=== PATIENT | female | born 1940 | race Caucasian/White ===

== ENCOUNTER → 2016-10-03 | Outpatient (CLI) | payer OTHER ==
[~2016-10-03] VITALS: Ht 162.6 cm; Wt 70.8 kg
[~2016-10-03] MED LIST: ASPI1TAB PO; CALC600T57 PO; LIDOCAINE 2% INJ 100 MG/5 ML SDV (FOR ANES.) As Ordered ONE; MULT1TAB10 PO; NS 1,000 ML IV ONE; PROPOFOL 200 MG/20 ML VIAL As Ordered ONE; SIMV40TA2 PO; VITA500T PO
--- NOTE | 2016-10-03 09:08 | ROOR ---
Patient Name: Janet Fam Procedure Date: 10/03/2016 8:41 AM Date of : 1940 Age: 75 Room: [facility] Gender: Female Note Status: Finalized Procedure: Colonoscopy Indications: High risk colon cancer surveillance: Personal history of colonic polyps, Last colonoscopy: May 2013 Providers: Delon MOREL MD Referring MD: Gavin Whitlock MD Requesting Provider: Medicines: Monitored Anesthesia Care Complications: No immediate complications. Procedure: Pre-Anesthesia Assessment: - The heart rate, respiratory rate, oxygen saturations, blood pressure, adequacy of pulmonary ventilation, and response to care were monitored throughout the procedure. The Colonoscope was introduced through the anus and advanced to the terminal ileum, with identification of the appendiceal orifice and IC valve. The colonoscopy was performed without difficulty. The patient tolerated the procedure well. The quality of the bowel preparation was good. Findings: The perianal and digital rectal examinations were normal. Multiple medium-mouthed diverticula were found in the sigmoid colon. There was evidence of diverticular spasm. Internal hemorrhoids were found during retroflexion. The hemorrhoids were medium-sized. The exam was otherwise without abnormality. Impression: - Moderate/severe diverticulosis in the sigmoid colon. There was evidence of diverticular spasm. - Internal hemorrhoids. - The examination was otherwise normal. - No specimens collected. Recommendation: - Repeat colonoscopy in 5 years for adenoma surveillance. Delon Morel MD Delon MOREL MD 10/03/2016 9:07:46 AM This report has been signed electronically. Number of Addenda: 0 Note Initiated On: 10/03/2016 8:41 AM Estimated Blood Loss: Estimated blood loss: none.
[2016-10-03 09:30] VITALS: BP 142/74
== END | disposition home or self-care (01) ==
LOC: M OPP 07:41
PROVIDERS: ATTEND Internal Medicine Gastroenterology
DX: Z12.11 Encounter for screening for malignant neoplasm of colon (principal); Z86.010 Personal history of colon polyps; K57.30 Diverticulosis of large intestine without perforation or abscess without bleeding; K64.8 Other hemorrhoids; E78.00 Pure hypercholesterolemia, unspecified; R06.83 Snoring; Z79.899 Other long term (current) drug therapy; Z79.82 Long term (current) use of aspirin

== ENCOUNTER → 2016-11-28 | Outpatient (REF) | payer OTHER ==
[~2016-11-28] MED LIST changes: -LIDOCAINE 2% INJ 100 MG/5 ML SDV (FOR ANES.) As Ordered ONE; -NS 1,000 ML IV ONE; -PROPOFOL 200 MG/20 ML VIAL As Ordered ONE
[2016-11-28 13:11] LABS: ALBUMIN 3.7 GM/DL (3.2-5.2); ALBUMIN/GLOBULIN RATIO 1.06 (1.00-1.93); ALKALINE PHOSPHATASE 69 U/L (45-117); ALT/SGPT 24 U/L (12-78); ANION GAP 7 MEQ/L (8-16); AST/SGOT 6 U/L (15-37); BILIRUBIN,TOTAL 0.4 MG/DL (0.2-1.0); BLOOD UREA NITROGEN 16 MG/DL (7-18); CALCIUM LEVEL 8.8 MG/DL (8.8-10.2); CARBON DIOXIDE LEVEL 29 MEQ/L (21-32); CHLORIDE LEVEL 107 MEQ/L (98-107); CHOLESTEROL LEVEL 198 MG/DL (<200); CREATININE FOR GFR 0.79 MG/DL (0.55-1.02); GLOMERULAR FILTRATION RATE > 60.0 (>39); GLUCOSE, FASTING 80 MG/DL (83-110); POTASSIUM SERUM 4.6 MEQ/L (3.5-5.1); SODIUM LEVEL 143 MEQ/L (136-145); TOTAL PROTEIN 7.2 GM/DL (6.4-8.2); TRIGLYCERIDES LEVEL 237 MG/DL (<150)
== END ==
LOC: M SFHCADAM 08:37
PROVIDERS: ATTEND Family Medicine
DX: R03.0 Elevated blood-pressure reading, without diagnosis of hypertension (principal); E78.2 Mixed hyperlipidemia

== ENCOUNTER → 2017-03-06 | Outpatient (CLI) | payer OTHER ==
--- NOTE | 2017-03-06 15:45 | REPMRS ---
Patient History The patient states she had a clinical breast exam in 02/2017.Patient is postmenopausal and has history of other cancer at age 69. Family history of breast cancer in paternal aunt under age 50 and breast cancer in maternal cousin. Benign excisional biopsy of the left breast, 1998. Benign excisional biopsy of the right breast, 1984. Digital Woman Screen Mammo: March 06, 2017 - Exam #: [id number] Bilateral CC and MLO view(s) were taken. Technologist: Domitila Armstrong Technologist Prior study comparison: February 07, 2016, digital woman screen mammo performed at [facility]. February 04, 2015, digital woman screen mammo performed at [facility]. FINDINGS: There are scattered fibroglandular densities. There is a fairly symmetric fibroglandular pattern in both breasts. There has been no interval development of masses, areas of architectural distortion or clusters of microcalcifications typical of malignancy. ASSESSMENT: BI-RADS/ACR category 2 mammogram. Benign finding(s). Recommendation Routine screening mammogram of both breasts in 1 year (for women over age 40). This mammogram was interpreted with the aid of an FDA-approved computer-aided dectection system. Electronically Signed By: Magan Salguero MD 03/06/17 [id number]
== END ==
LOC: M WHC 14:22
PROVIDERS: ATTEND Nurse Practitioner Family
DX: Z12.31 Encounter for screening mammogram for malignant neoplasm of breast (principal); Z78.0 Asymptomatic menopausal state; Z92.89 Personal history of other medical treatment

== ENCOUNTER → 2017-10-30 | Outpatient (REF) | payer OTHER ==
[2017-10-30 12:52] LABS: HEMATOCRIT 38.7 % (36.0-47.0); HEMOGLOBIN 12.7 g/dl (12.0-15.5); MEAN CORPUSCULAR HEMOGLOBIN 30.8 pg (27.0-33.0); MEAN CORPUSCULAR HGB CONC 32.8 g/dl (32.0-36.5); MEAN CORPUSCULAR VOLUME 93.7 fl (80.0-96.0); PLATELET COUNT, AUTOMATED 251 10^3/uL (150-450); RED BLOOD COUNT 4.13 10^6/uL (4.00-5.40); RED CELL DISTRIBUTION WIDTH 12.4 % (11.5-14.5); WHITE BLOOD COUNT 7.3 10^3/uL (4.0-10.0)
[2017-10-30 13:26] LABS: ALBUMIN 3.6 GM/DL (3.2-5.2); ALKALINE PHOSPHATASE 82 U/L (45-117); ALT/SGPT 24 U/L (12-78); ANION GAP 7 MEQ/L (8-16); AST/SGOT 11 U/L (7-37); BILIRUBIN,TOTAL 0.4 MG/DL (0.2-1.0); BLOOD UREA NITROGEN 13 MG/DL (7-18); CARBON DIOXIDE LEVEL 29 MEQ/L (21-32); CHLORIDE LEVEL 109 MEQ/L (98-107); CHOLESTEROL LEVEL 192 MG/DL (<200); CHOLESTEROL RISK RATIO 3.918 (<5); CREATININE FOR GFR 0.81 MG/DL (0.55-1.30); FREE T4 0.86 NG/DL (0.76-1.46); GLOMERULAR FILTRATION RATE > 60.0 (>39); GLUCOSE, FASTING 86 MG/DL (70-100); HDL CHOLESTEROL 49 MG/DL (>40); LDL CHOLESTEROL 84.2 MG/DL (<100); NON-HDL-C 143 MG/DL; POTASSIUM SERUM 4.4 MEQ/L (3.5-5.1); SODIUM LEVEL 145 MEQ/L (136-145); TOTAL PROTEIN 7.2 GM/DL (6.4-8.2); TRIGLYCERIDES LEVEL 294 MG/DL (<150)
== END ==
LOC: M SFHCADAM 08:15
DX: K21.9 Gastro-esophageal reflux disease without esophagitis (principal); E78.2 Mixed hyperlipidemia
CPT/HCPCS: 84443

== ENCOUNTER → 2018-03-12 | Outpatient (REF) | payer OTHER ==
--- NOTE | 2018-03-13 05:50 | REP ---
Clinical: Chronic cough. Technique: PA and lateral. Comparison: 08/24/2005. Findings: Mediastinum and cardiac silhouette are within normal limits. Bilateral hilar prominence likely related to underlying pulmonary vasculature and less likely adenopathy. Chronic interstitial changes noted. No focal consolidation / opacity, effusion, or pneumothorax. Skeletal structures intact. Impression: Presumed chronic changes as noted above. If the patient remains symptomatic consider chest CT for further investigation. Electronically Signed by Chema Leung MD 03/13/2018 05:41 A
== END ==
LOC: M ADAMS 09:31
PROVIDERS: ATTEND Family Medicine
DX: R05 Cough (principal)
CPT/HCPCS: 71046; G0463

== ENCOUNTER → 2018-03-15 | Outpatient (CLI) | payer OTHER | LOC: M WHC 15:07 | DX: Z12.31 Encounter for screening mammogram for malignant neoplasm of breast (principal); R92.1 Mammographic calcification found on diagnostic imaging of breast; Z78.0 Asymptomatic menopausal state; Z86.018 Personal history of other benign neoplasm | CPT/HCPCS: 77067 ==

== ENCOUNTER → 2018-10-14 | Outpatient (REF) | payer MEDICARE ==
[~2018-10-14] MED LIST changes: -ASPI1TAB PO; +ASPI81TA26 PO
== END ==
LOC: M LAB REF 15:48
PROVIDERS: ATTEND Nurse Practitioner Family
DX: L60.3 Nail dystrophy (principal)

== ENCOUNTER → 2018-11-12 | Outpatient (REF) | payer MEDICARE ==
[2018-11-12 12:49] LABS: ALBUMIN 3.5 GM/DL (3.2-5.2); ALT/SGPT 23 U/L (12-78); BILIRUBIN,TOTAL 0.3 MG/DL (0.2-1.0); BLOOD UREA NITROGEN 15 MG/DL (7-18); CALCIUM LEVEL 9.2 MG/DL (8.8-10.2); CARBON DIOXIDE LEVEL 30 MEQ/L (21-32); CHLORIDE LEVEL 107 MEQ/L (98-107); CHOLESTEROL LEVEL 198 MG/DL (<200); CREATININE FOR GFR 0.77 MG/DL (0.55-1.30); GLOMERULAR FILTRATION RATE > 60.0 (>39); GLUCOSE, FASTING 87 MG/DL (70-100); HDL CHOLESTEROL 45 MG/DL (>40); LDL CHOLESTEROL 92 MG/DL (<100); NON-HDL-C 153 MG/DL; POTASSIUM SERUM 4.3 MEQ/L (3.5-5.1); SODIUM LEVEL 143 MEQ/L (136-145); TOTAL PROTEIN 7.3 GM/DL (6.4-8.2); TRIGLYCERIDES LEVEL 307 MG/DL (<150)
== END ==
LOC: M SFHCADAM 08:24
PROVIDERS: ATTEND Family Medicine
DX: E78.2 Mixed hyperlipidemia (principal)

== ENCOUNTER → 2018-11-26 | Outpatient (REF) | payer MEDICARE ==
[2018-11-26 14:12] LABS: HEMATOCRIT 39.8 % (36.0-47.0); HEMOGLOBIN 13.2 g/dl (12.0-15.5); MEAN CORPUSCULAR HEMOGLOBIN 31.2 pg (27.0-33.0); MEAN CORPUSCULAR HGB CONC 33.2 g/dl (32.0-36.5); MEAN CORPUSCULAR VOLUME 94.1 fl (80.0-96.0); PLATELET COUNT, AUTOMATED 270 10^3/uL (150-450); RED BLOOD COUNT 4.23 10^6/uL (4.00-5.40); WHITE BLOOD COUNT 7.9 10^3/uL (4.0-10.0)
[2018-11-26 14:24] LABS: FREE T4 0.86 NG/DL (0.76-1.46); THYROID STIMULATING HORMONE 2.53 uIU/ML (0.358-3.740)
== END ==
LOC: M SFHCADAM 10:56
PROVIDERS: ATTEND Family Medicine
DX: R53.83 Other fatigue (principal)

== ENCOUNTER → 2019-03-04 | Outpatient (CLI) | payer MEDICARE, OTHER ==
[~2019-03-04] MED LIST changes: -SIMV40TA2 PO; +SIMV40TA20 PO
--- NOTE | 2019-03-04 12:44 | REPMRS ---
Patient History The patient states she had a clinical breast exam in February 2019.Family history of breast cancer under age 50 in paternal aunt, breast cancer in maternal cousin. Benign excisional biopsy of the left breast, 1998. Benign excisional biopsy of the right breast, 1984. No Hormone Replacement Therapy 3D TOMOSYNTHESIS WAS PERFORMED. The [facility] lifetime risk for breast cancer is4.4 %. Digital Woman Screen Mammo: March 04, 2019 - Exam #: [id number] Bilateral CC and MLO view(s) were taken. Technologist: My Valdez, Technologist Prior study comparison: March 15, 2018, bilateral digital woman screen mammo performed at [facility]. March 06, 2017, digital woman screen mammo performed at [facility]. FINDINGS: The breast tissue is heterogeneously dense. This may lower the sensitivity of mammography. There has been no change in the appearance of the mammogram from the prior studies. There is a moderate amount of residual fibroglandular tissue which is fairly symmetric. There is no interval development of dominant mass, areas of architectural distortion, or clustered microcalcification typical of malignancy. Assessment: BI-RADS/ACR category 1 mammogram. Negative Mammogram. Recommendation Routine screening mammogram in 1 year (for women over age 40). This mammogram was interpreted with the aid of an FDA-approved computer-aided dectection system. Electronically Signed By: Magan Salguero MD 03/04/19 [id number]
== END ==
LOC: M WHC 10:30
PROVIDERS: ATTEND Nurse Practitioner Family
DX: Z01.419 Encounter for gynecological examination (general) (routine) without abnormal findings (principal); Z12.31 Encounter for screening mammogram for malignant neoplasm of breast; Z86.018 Personal history of other benign neoplasm
CPT/HCPCS: 77063; 77067; G0101

== ENCOUNTER → 2019-11-19 | Outpatient (REF) | payer MEDICARE ==
[~2019-11-19] MED LIST changes: +VITA-243 PO; -VITA500T PO
[2019-11-19 14:42] LABS: HEMATOCRIT 40.1 % (36.0-47.0); HEMOGLOBIN 12.8 g/dl (12.0-15.5); MEAN CORPUSCULAR HEMOGLOBIN 29.9 pg (27.0-33.0); MEAN CORPUSCULAR HGB CONC 31.9 g/dl (32.0-36.5); MEAN CORPUSCULAR VOLUME 93.7 fl (80.0-96.0); PLATELET COUNT, AUTOMATED 242 10^3/uL (150-450); RED BLOOD COUNT 4.28 10^6/uL (4.00-5.40); WHITE BLOOD COUNT 7.3 10^3/uL (4.0-10.0)
[2019-11-19 14:43] LABS: ALBUMIN 3.8 GM/DL (3.2-5.2); ALT/SGPT 21 U/L (12-78); BILIRUBIN,TOTAL 0.4 MG/DL (0.2-1.0); BLOOD UREA NITROGEN 15 MG/DL (7-18); CARBON DIOXIDE LEVEL 31 MEQ/L (21-32); CHLORIDE LEVEL 108 MEQ/L (98-107); CHOLESTEROL LEVEL 186 MG/DL (<200); CHOLESTEROL RISK RATIO 3.576 (<5); CREATININE FOR GFR 0.79 MG/DL (0.55-1.30); GLOMERULAR FILTRATION RATE > 60.0 (>39); GLUCOSE, FASTING 82 MG/DL (70-100); HDL CHOLESTEROL 52 MG/DL (>40); LDL CHOLESTEROL 87 MG/DL (<100); NON-HDL-C 134 MG/DL; POTASSIUM SERUM 4.6 MEQ/L (3.5-5.1); SODIUM LEVEL 142 MEQ/L (136-145); TOTAL PROTEIN 7.1 GM/DL (6.4-8.2); TRIGLYCERIDES LEVEL 233 MG/DL (<150)
== END ==
LOC: M LABDRWAD 13:38
PROVIDERS: ATTEND Family Medicine
DX: E78.5 Hyperlipidemia, unspecified (principal); K21.9 Gastro-esophageal reflux disease without esophagitis
CPT/HCPCS: 36415; 80053; 80061; 85027; G0463

== ENCOUNTER → 2020-03-03 | Outpatient (CLI) | payer MEDICARE ==
--- NOTE | 2020-03-03 11:36 | REPMRS ---
Patient History The patient states she had a clinical breast exam in February 2020.Family history of breast cancer under age 50 in paternal aunt, breast cancer in maternal cousin. Benign excisional biopsy of the left breast, 1998. Benign excisional biopsy of the right breast, 1984. No Hormone Replacement Therapy Digital Woman Screen Mammo: March 03, 2020 - Exam #: [id number] Bilateral CC and MLO view(s) were taken. Technologist: My Valdez, Technologist Prior study comparison: March 04, 2019, bilateral digital woman screen mammo performed at [facility]. March 15, 2018, bilateral digital woman screen mammo performed at [facility]. March 06, 2017, digital woman screen mammo performed at [facility]. FINDINGS: There are scattered fibroglandular densities. The [facility] volumetric breast density category is:B. There has been no change in the appearance of the mammogram from the prior studies. There is a mild amount of scattered fibroglandular density which is fairly symmetric. There is no interval development of dominant mass, architectural distortion, or grouped microcalcification suggestive of malignancy. 3-D tomosynthesis shows no additional findings. Assessment: BI-RADS/ACR category 1 mammogram. Negative Mammogram. Recommendation Routine screening mammogram of both breasts in 1 year (for women over age 40). This patient's [facility] Lifetime Breast Cancer Risk is estimated at 3.9 %. This mammogram was interpreted with the aid of an FDA-approved computer-aided dectection system. Electronically Signed By: Kyaw Torrez MD 03/03/20 [id number]
== END ==
LOC: M WHC 10:28
PROVIDERS: ATTEND Nurse Practitioner Family
DX: Z12.31 Encounter for screening mammogram for malignant neoplasm of breast (principal); Z86.018 Personal history of other benign neoplasm

== ENCOUNTER → 2020-04-28 | Outpatient (CLI) | payer MEDICARE | LOC: M LABSMTC 12:15 | PROVIDERS: ATTEND Anesthesiology | DX: Z01.812 Encounter for preprocedural laboratory examination (principal); Z20.822 Contact with and (suspected) exposure to COVID-19 ==

== ENCOUNTER 2020-05-03 08:16 | Day surgery (SDC) | payer MEDICARE ==
[~2020-05-03] VITALS: Ht 162.6 cm; Wt 75.7 kg
[~2020-05-03 08:16] MED LIST changes: +CEFUROXIME 1MG/0.1ML INTRACAMERAL INJ As Ordered ONE; +DUOVISC (0.50ML VISCOAT/0.55ML PROVISC) OPHTH KIT As Ordered ONE; +OFLOXACIN 0.3 % (OCUFLOX) OPTH SOL 5ML OS ONE; +PHENYLEPHRINE 2.5% OPHTH SOL 2ML OS ONE; +POVIDONE-IODINE 5% OPHTH PREP SOL 30ML As Ordered ONE; +PROPARACAINE 0.5% OPHTH SOL 15ML OS ONE; +TROPICAMIDE 1% OPHTH SOLN 2ML OS ONE
[2020-05-03] MEDS ORDERED: BSS IRR 500ML/OMIDRIA 4ML IRR BAG (OR ONLY) As Ordered ONE (09:29)
[2020-05-03] MEDS ORDERED: fentaNYL 100 MCG/2 ML INJECTION (J3010) As Ordered ONE (09:46)
[2020-05-03] MEDS ORDERED: MIDAZOLAM INJ 2MG/2ML VIAL (J2250 PER 1MG) As Ordered ONE (09:46)
[2020-05-03 09:55] VITALS: BP 177/74
--- NOTE | 2020-05-05 10:54 | RO ---
OPERATIVE NOTE DATE OF OPERATION: 05/03/2020 PREOPERATIVE DIAGNOSIS: 1. Visually significant nuclear sclerotic cataract, left eye. POSTOPERATIVE DIAGNOSIS: 1. Visually significant nuclear sclerotic cataract, left eye. PROCEDURE: 1. Cataract extraction with use of phacoemulsification, and placement of intraocular lens, AU00T0, D 22.0, left eye. SURGEON: Syd Rodriguez DO ANESTHESIA: Local (Omidria with MAC) COMPLICATIONS: None POSTOPERATIVE CONDITION: Stable INDICATIONS FOR SURGERY: 1. Blurred vision affecting patient's activities of daily living. DESCRIPTION OF PROCEDURE: The patient was seen in the preoperative area and properly identified. The correct operative eye was identified and marked. The patient received topical anesthetic, antibiotics, and topical dilating drops. The patient was then transferred to the operating room. The correct side was re-identified and a time-out was performed. The eye was prepped and draped in a sterile fashion. The eyelids were isolated with Tegaderm tape and the lids were held open with an adjustable speculum. A 1.0mm paracentesis incision was made. Omidria was then injected into the anterior chamber. Viscoelastic was then injected into the anterior chamber through the paracentesis. Using a 2.4mm sharp-tipped keratome, the anterior chamber was entered via a temporal clear cornea incision. A continuous curvilinear capsulorrhexis was created with Utrata forceps. Hydrodissection was performed with BSS on a blunt cannula until the nucleus was able to rotate freely. The crystalline lens was phacoemulsified and aspirated. Irrigation/aspiration was used to remove the cortical material Cohesive viscoelastic was placed into the capsular bag to deepen it. The implant was placed into the capsular bag and allowed to unfold. Placement was confirmed by visualizing the anterior capsulorrhexis. Irrigation/aspiration was used to remove the viscoelastic. The clear corneal incision was hydrated with BSS on a blunt cannula. The lens was well positioned. Intracameral antibiotic was injected into the anterior chamber. The incisions were then tested for leaks and found to be negative. The eye was then palpated for appropriate pressure and adjusted accordingly with BSS. The eyelid speculum was then carefully removed. A shield was placed over the eye. The patient tolerated the procedure well and was discharge to the recovery unit in a stable condition.
== END 2020-05-03 10:40 | disposition home or self-care (01) ==
LOC: M SDC 08:16
PROVIDERS: ATTEND Ophthalmology
DX: H25.12 Age-related nuclear cataract, left eye (principal); E78.5 Hyperlipidemia, unspecified; Z79.82 Long term (current) use of aspirin; Z79.899 Other long term (current) drug therapy
CPT/HCPCS: 66984; J1097; J2250; J3010; V2632

== ENCOUNTER → 2020-05-05 | Outpatient (CLI) | payer MEDICARE ==
[~2020-05-05] MED LIST changes: -CEFUROXIME 1MG/0.1ML INTRACAMERAL INJ As Ordered ONE; -DUOVISC (0.50ML VISCOAT/0.55ML PROVISC) OPHTH KIT As Ordered ONE; -OFLOXACIN 0.3 % (OCUFLOX) OPTH SOL 5ML OS ONE; -PHENYLEPHRINE 2.5% OPHTH SOL 2ML OS ONE; -POVIDONE-IODINE 5% OPHTH PREP SOL 30ML As Ordered ONE; -PROPARACAINE 0.5% OPHTH SOL 15ML OS ONE; -TROPICAMIDE 1% OPHTH SOLN 2ML OS ONE
== END ==
LOC: M LABSMTC 10:16
PROVIDERS: ATTEND Anesthesiology
DX: Z20.828 Contact with and (suspected) exposure to other viral communicable diseases (principal)

== ENCOUNTER 2020-05-10 08:57 | Day surgery (SDC) | payer MEDICARE ==
[~2020-05-10] VITALS: Ht 162.6 cm; Wt 75.2 kg
[~2020-05-10 08:57] MED LIST changes: +CEFUROXIME 1MG/0.1ML INTRACAMERAL INJ As Ordered ONE; +DUOVISC (0.50ML VISCOAT/0.55ML PROVISC) OPHTH KIT As Ordered ONE; +OFLOXACIN 0.3 % (OCUFLOX) OPTH SOL 5ML OD ONE; +PHENYLEPHRINE 2.5% OPHTH SOL 2ML OD ONE; +POVIDONE-IODINE 5% OPHTH PREP SOL 30ML As Ordered ONE; +PROPARACAINE 0.5% OPHTH SOL 15ML OD ONE; +TROPICAMIDE 1% OPHTH SOLN 2ML OD ONE
--- OUTSIDE RECORDS SUMMARY | 2020-05-10 09:02 | CCD ---
Author Author Delon Ramsey MD [facility] Organization Delon Ramsey MD [facility] Address [phone] [address] Phone Care Team Providers Care Chemical Research Worker Name Role Phone Roxy GOMEZ, SHAHANA, Delon Bush Unavailable [phone] Reason for Referral No Reason for Referral Recorded Problems Includes: Active, inactive, and resolved Problems All Visits Onset Date - Time Resolved Date - Time Provider Co ndition Status Pseudophakia 05/05/2020 - 12:00AM Syd Rodriguez DO Active Corneal Dystrophy Anterior 04/02/2020 - 12:00AM Surya Rodriguez DO Active Macular Degeneration Nonexudative Bilateral Early Dry Stage 12/14/2017 - 12:00AM Delon Ramsey MD, FACS Active Cataract Senile Cortical Left 12/14/2017 - 12:00AM Yves Rodriguez DO Inactive Cataract Senile Posterior Subcapsular Polar 12/14/2017 - 12: 00AM 04/02/2020 - 2:24PM Syd Rodriguez DO Resolved Cataract Senile Nuclear 12/14/2017 - 12:00AM Delon Ramsey MD, FACS Active Dry Eye Syndrome Both Eyes 12/14/2017 - 12:00AM Delon Ramsey MD, FACS Active Vitreous Disorders Degeneration 12/14/2017 - 12:00AM Delon Ramsey MD, FACS Active Plan of Treatment Pending Tests Order Diagnosis Results Due Ordering Provi guerita Testing Ordered - AScan A-Scan IOL Master Age-related nucl ear cataract, bilateral 06/01/20 Syd Rodriguez DO Referrals To Diagnosis Referral to Dr. Michael Ramsey MD, FACS Age-r elated nuclear cataract, bilateral Future Appointments Date Time Location Provider Extracapsular cataract removal w/IOL implant 05/10/2020 7:[address] [facility] Syd Michael DO 1 Week Post OP 05/18/2020 8:50AM Delon Ramsey MD [facility] blake Michael DO Findings Encounter Date Requested Referred to: Dr. Rodriguez 6 Month Follow-U p with Delon Ramsey MD, FACS 02/27/2020 Assessments Includes: Assessments for all patient encounters Findings Encounter Date Nuclear senile cataract POST OP VISIT WITH PRE-OP with Izabel jin Michael DO 05/05/2020 Pseudophakia POST OP VISIT WITH PRE-OP with Syd marti DO 05/05/2020 Nuclear senile cataract 1 WK PREOP FOR SURGERY with Syd Michael DO 04/23/2020 Anterior corneal dystrophy CATARACT EVAL - REFERRAL FR DR. FOSTER with Syd Michael DO 04/02/2020 Dry eye syndrome CATARACT EVAL - REFERRAL FR DR. FOSTER with Syd Rodriguez DO 04/02/2020 Early dry stage nonexudative macular degeneration of b oth eyes CATARACT EVAL - REFERRAL FR DR. FOSTER with Syd Michael DO 04/02/2020 Nuclear senile cataract CATARACT EVAL - REFERRAL FR DR. FOSTER with Syd Pennstein DO 04/02/2020 Vitreous degeneration CATARACT EVAL - REFERRAL FR DR. FOSTER with Syd Rodriguez DO 04/02/2020 Dry eye syndrome of both eyes 6 Month Follow-Up with Alisha Ramsey MD, FACS 02/27/2020 Early dry stage nonexudative macular degeneration of b oth eyes 6 Month Follow-Up with Delon Ramsey MD, FACS 02/27/2020 Left cortical senile cataract 6 Month Follow-Up with Alisha Ramsey MD, FACS 02/27/2020 Nuclear senile cataract 6 Month Follow-Up with Delon South MD, FACS 02/27/2020 Posterior subcapsular polar senile cataract 6 Month Fo llow-Up with Delon Ramsey MD, FACS 02/27/2020 Dry eye syndrome of both eyes 10 Month followup with T esting with Delon Ramsey MD, FACS 09/19/2019 Early dry stage nonexudative macular degeneration of b oth eyes 10 Month followup with Testing with Delon Ramsey MD, FACS 09/19/2019 Left cortical senile cataract 10 Month followup with T esting with Delon Ramsey MD, [facility] 09/19/2019 Nuclear senile cataract 10 Month followup with Testi ng with Delon Ramsey MD, [facility] 09/19/2019 Posterior subcapsular polar senile cataract 10 Month f ollowup with Testing with Delon Ramsey MD, [facility] 09/19/2019 Early dry stage nonexudative macular degeneration of b oth eyes 5 Month Follow-Up and Testing with Delon Ramsey MD, [facility] 11/06/2018 Left cortical senile cataract 5 Month Follow-Up and Te sting with Delon Herrera MD, [facility] 11/06/2018 Nuclear senile cataract 5 Month Follow-Up and Testin g with Delon Ramsey MD, [facility] 11/06/2018 Posterior subcapsular polar senile cataract 5 Month Fo llow-Up and Testing with Delon Ramsey MD, [facility] 11/06/2018 Vitreous degeneration 5 Month Follow-Up and Testin g with Delon Ramsey MD, [facility] 11/06/2018 Early dry stage nonexudative macular degeneration of b oth eyes Dilated Fundal Exam with Delon Ramsey MD, [facility] 05/09/2018 Dry eye syndrome of both eyes NEW PATIENT WITH REFERRA L with Delon Ramsey MD, [facility] 12/14/2017 Early dry stage nonexudative macular degeneration of b oth eyes NEW PATIENT WITH REFERRAL with Delon Ramsey MD, [facility] 12/14/2017 Left cortical senile cataract NEW PATIENT WITH REFERRA L with Delon Ramsey MD, [facility] 12/14/2017 Nuclear senile cataract NEW PATIENT WITH REFERRAL [facility] Delon Ramsey MD, [facility] 12/14/2017 Posterior subcapsular polar senile cataract NEW PATIEN T WITH REFERRAL with Delon Ramsey MD, [facility] 12/14/2017 Vitreous degeneration NEW PATIENT WITH REFERRAL [facility] Delon Ramsey MD, [facility] 12/14/2017 Instructions Instructions not supported for this document typeNo Instructions Recorded Medical Equipment - Implanted Devices Includes: Current and historical DevicesNo Medical Equipment Recorded Medications Includes: Current and historical Medications Current Medications (continue as prescribed) BromSite 0.075% Ophthalmic Solution 05/05/2020 Prov ider: Syd Rodriguez DO Diagnosis: Age-related nuclear cataract, right eye Three days prior to surgery start one dr op two times a day in the right eye, RUN CARD. SEE PHARM NOTES Inveltys 1% Ophthalmic Suspension 05/05/2020 Provid er: Syd Rodriguez DO Diagnosis: Age-related nuclear cataract, right eye Day of surgery remove patch start one dr op two times a day in the right eye, RUN CARD. SEE PHARM NOTES Moxifloxacin HCl 0.5% Ophthalmic Solution 04/23/2020 Provider: Syd Rodriguez DO Diagnosis: Age-related nuclear cataract, left eye Three days prior to surgery start one drop four times a day in the left eye Simvastatin 40MG Oral Tablet 12/14/2017 Provider: Diagnosis: Calcium 600MG Oral Tablet 12/14/2017 Provider: Diagnosis: [facility] Vitamin C 500MG Oral Tablet 12/14/2017 Provider : Diagnosis: Aspirin 81MG Oral Tablet Delayed Release 12/14/2017 Provider: Diagnosis: ChoiceFul Multivitamin Oral Capsule 12/14/2017 Prov ider: Diagnosis: Past Medications on file BromSite 0.075% Ophthalmic Solution 04/23/2020 - 05/05/2020 Provider: Syd Rodriguez DO Diagnosis: Age-related nuclear cataract, left eye Three days prior to surgery start one dr op two times a day in the left eye, RUN CARD. SEE PHARM NOTES Inveltys 1% Ophthalmic Suspension 04/23/2020 - 05/05/2020 Pr ovider: Syd Rodriguez DO Diagnosis: Age-related nuclear cataract, left eye Day of surgery remove patch start one dr op two times a day in the left eye, RUN CARD. SEE PHARM NOTES Medications Administered Includes: Administered Medications in patient's chartNo Administered Medications Recorded Vital Signs Includes: Vital Signs from 05/05/2019 through 05/05/2020No Vital Signs Recorded For Specified Dates Results Includes: Results from 05/05/2019 through 05/05/2020No Results Recorded For Specified Dates History of Present Illness History of Present Illness not supported for this document typeNo History of Present Illness Recorded Social History Description Last Updated No consumption of alcohol 05/05/2020 No tobacco use 05/05/2020 Not using drugs 05/05/2020 Smoking status : Never smoker 05/05/2020 Tobacco non-user 04/02/2020 Never smoked 09/19/2019 Procedures and Surgical History Includes: Procedures from 05/05/2019 through 05/05/2020 Procedures Code Diagnosis Performing Provider Service Location Service Date Ophthalmic biometry - IOL Master with IOL calculation (26, R T) 76175 Age-related nuclear cataract, right eye Syd Rodriguez DO 05/05/2020 Intermediate Eye Exam Established Patient (Signi/Sep Eval. & Man.) [id number] Age- related nuclear cataract, left eye Syd Michael Vega MD [facility] 04/23/2020 Ophthalmic biometry - IOL Master with IO L calculation (Left side, WAIVER OF LIABILITY ON FILE (ABN)) [id number] Age-related nuclear cataract, left eye Syd Michael Vega MD [facility] 04/23/2020 Intermediate Eye Exam Established Patient [id number] Age-related nuclear cataract, bilateral Syd Pennnadia Vega MD [facility] 04/02/2020 Intermediate Eye Exam Established Patient [id number] Nexdtve age-related mclr degn, bilateral, early dry stage, Posterior subcapsular polar age-related cataract, bilateral, Age-related nuclear cataract, bilateral, Cortical age-related cataract, left eye Delon Ramsey MD, FACS Delon Ramsey MD [facility] 02/27/2020 [facility], with interpretation and re port (WAIVER OF LIABILITY ON FILE (ABN)) [id number] Nexdtve age-related mclr degn, bilateral , early dry stage Delon Herrera MD, FACS Delon Ramsey MD [facility] 09/19/2019 Comprehensive eye exam established patient (Signi/Sep Eval. & Man.) [id number] Nexdtve age-related mclr degn, bilateral, early dry stage, Age-related nuclear cataract, bilateral, Cortical age-related cataract, left eye, Posterior subcapsular polar age-related cataract, bilateral Delon Ramsey MD, FACS Delon Ramsey MD [facility] 09/19/2019 Surgical History Last Updated History of extracapsular cataract extrac tion PCIOL OS by Dr. Rodriguez 05/03/2020 05/05/2020 Surgical / procedural history Cyst Kevin hank on Breast 1985 1998. Hip replaced 2005. Nose Basal Cancer 06/2010, 12/24/2019 Medical History Includes: Medical History in patient's chart Description Last Updated Recent change in medical history Extrac apsular cataract extraction PCIOL OS by Dr. Rodriguez 05/03/2020 05/05/2020 Currently wearing eyeglasses 09/19/2019 History of hyperlipidemia 09/19/2019 Family History Includes: Family History in patient's chart Description Last Updated Family medical history was unknown 05/05/2020 Review of Systems Review of Systems not supported for this document typeNo Review of Systems Recorded Mental Status Mental Status not supported for this document type Description Oriented to time, place, and person Functional Status Functional Status not supported for this document typeNo Functional Status Recorded Physical Exam Physical Exam not supported for this document typeNo Physical Exam Recorded Immunizations Includes: Immunizations in patient's chartNo Immunizations Recorded Allergies Includes: Active, inactive, and resolved AllergiesNo Known Allergies Encounters Includes: Encounters from 05/05/2019 through 05/05/2020 Encounter Provider Location Date Check-In Time Check-Out Time D iagnosis POST OP VISIT WITH PRE-OP Syd Vega MD [facility] 05/05/2020 8:16AM 9:32AM Cataract Senile Nucl ear, Pseudophakia Extracapsular cataract removal w/IOL implant Syd Diallo in [facility] 05/03/2020 04/23/2020 7:50AM 7:00AM 1 WK PREOP FOR SURGERY Syd Vega MD [facility] 04/23/2020 8:42AM 9:42AM Cataract Senile Nuclear CATARACT EVAL - REFERRAL FR DR. KRISTIN Rowley MD [facility] 04/02/2020 12:56PM 2:34PM Corneal Dystroph y Anterior, Dry Eye Syndrome, Cataract Senile Nuclear, Vitreous Disorders Degeneration, Macular Degeneration Nonexudative Bilateral Early Dry Stage 6 Month Follow-Up Delon Ramsey MD, FACS Delon Ramsey MD [facility] 02/27/2020 1:54PM 3:18PM Cataract Senile Post erior Subcapsular Polar, Cataract Senile Nuclear, Dry Eye Syndrome Both Eyes, Cataract Senile Cortical Left, Macular Degeneration Nonexudative Bilateral Early Dry Stage 10 Month followup with Testing Delon Ramsey MD, FACS Delon Ramsey MD [facility] 09/19/2019 11:55AM 12:47PM Macular Degenera tion Nonexudative Bilateral Early Dry Stage, Cataract Senile Cortical Left, Cataract Senile Nuclear, Cataract Senile Posterior Subcapsular Polar, Dry Eye Syndrome Both Eyes Insurance Includes: Active Insurance Policies Plan Name Member ID Group # Subscriber Relationship Effective Beck tapia 1 - [employer]AUTH NEEDED!!!!!! [id number] Janet Fam Self 02/23/2020 - Unknown Advance Directives Includes: Current Advance DirectivesNo Advance Directives Recorded Health Concerns Includes: Active Health ConcernsNo Active Health Concerns Recorded Goals Includes: Active GoalsNo Active Goals Recorded Interventions Includes: Interventions for active GoalsNo Interventions Recorded Evaluations & Outcomes Includes: Evaluations & Outcomes for active GoalsNo Outcomes Recorded
--- OUTSIDE RECORDS SUMMARY | 2020-05-10 09:02 | CCD ---
Author Author Delon Ramsey MD [facility] Organization Delon Ramsey MD [facility] Address [phone] [address] Phone Care Team Providers Care Criminal Justice Lawyer Name Role Phone Roxy GOMEZ, Delon HARKINS Unavailable [phone] Reason for Referral No Reason for Referral Recorded Problems Includes: Active, inactive, and resolved Problems All Visits Onset Date - Time Resolved Date - Time Provider Co ndition Status Corneal Dystrophy Anterior 04/02/2020 - 12:00AM Surya Rodriguez DO Active Macular Degeneration Nonexudative Bilateral Early Dry Stage 12/14/2017 - 12:00AM Delon Ramsey MD, FACS Active Cataract Senile Cortical Left 12/14/2017 - 12:00AM Yves Rodriguez DO Inactive Cataract Senile Posterior Subcapsular Polar 12/14/2017 - 12: 00AM 04/02/2020 - 2:24PM Syd Rodriguez DO Resolved Cataract Senile Nuclear 12/14/2017 - 12:00AM Delon Ramsey MD, SHAHANA Active Dry Eye Syndrome Both Eyes 12/14/2017 - 12:00AM Delon Ramsey MD, SHAHANA Active Vitreous Disorders Degeneration 12/14/2017 - 12:00AM Delon Ramsey MD, FACS Active Plan of Treatment Pending Tests Order Diagnosis Results Due Ordering Provi guerita Testing Ordered - AScan A-Scan IOL Master Age-related nucl ear cataract, bilateral 06/01/20 Syd Rodriguez DO Referrals To Diagnosis Referral to Dr. Michael Ramsey MD, SHAHANA Age-r elated nuclear cataract, bilateral Future Appointments Date Time Location Provider POST OP VISIT WITH PRE-OP 05/05/2020 8:30AM Delon ocampo MD [facility] Syd Rodriguez DO Extracapsular cataract removal w/IOL implant 05/10/2020 7:1 0AM [facility] Syd Rodriguez DO 1 Week Post OP 05/18/2020 8:50AM Delon Ramsey MD [facility] M blake Rodriguez DO Findings Encounter Date Requested Referred to: Dr. Rodriguez 6 Month Follow-U p with Delon Ramsey MD, FACS 02/27/2020 Assessments Includes: Assessments for all patient encounters Findings Encounter Date Nuclear senile cataract 1 WK PREOP FOR SURGERY with Syd Rodriguez DO 04/23/2020 Anterior corneal dystrophy CATARACT EVAL - REFERRAL FR DR. FOSTER with Syd Pennstein DO 04/02/2020 Dry eye syndrome CATARACT EVAL - REFERRAL FR DR. FOSTER with Syd Rodriguez DO 04/02/2020 Early dry stage nonexudative macular degeneration of b oth eyes CATARACT EVAL - REFERRAL FR DR. FOSTER with Syd Michael DO 04/02/2020 Nuclear senile cataract CATARACT EVAL - REFERRAL FR DR. FOSTER with Syd Rodriguez DO 04/02/2020 Vitreous degeneration CATARACT EVAL - [...] esting with Delon Ramsey MD, FACS 09/19/2019 Nuclear senile cataract 10 Month followup with Testi ng with Delon Ramsey MD, FACS 09/19/2019 Posterior subcapsular polar senile cataract 10 Month f ollowup with Testing with Delon Ramsey MD, FACS 09/19/2019 Early dry stage nonexudative macular degeneration of b oth eyes 5 Month Follow-Up and Testing with Delon Ramsey MD, FACS 11/06/2018 Left cortical senile cataract 5 Month Follow-Up and Te sting with Delon Herrera MD, FACS 11/06/2018 Nuclear senile cataract 5 Month Follow-Up and Testin g with Delon Ramsey MD, FACS 11/06/2018 Posterior subcapsular polar senile cataract 5 Month Fo llow-Up and Testing with Delon Ramsey MD, FACS 11/06/2018 Vitreous degeneration 5 Month Follow-Up and Testin g with Delon Ramsey MD, FACS 11/06/2018 Early dry stage nonexudative macular degeneration of b oth eyes Dilated Fundal Exam with Delon Ramsey MD, FACS 05/09/2018 Dry eye syndrome of both eyes NEW PATIENT WITH REFERRA L with Delon Ramsey MD, FACS 12/14/2017 Early dry stage nonexudative macular degeneration of b oth eyes NEW PATIENT WITH REFERRAL with Delon Ramsey MD, FACS 12/14/2017 Left cortical senile cataract NEW PATIENT WITH REFERRA L with Delon Ramsey MD, FACS 12/14/2017 Nuclear senile cataract NEW PATIENT [facility] Delon Ramsey MD, FACS 12/14/2017 Posterior subcapsular polar senile cataract NEW PATIEN T WITH REFERRAL with Delon Ramsey MD, FACS 12/14/2017 Vitreous degeneration NEW PATIENT WITH REFERRAL [facility] Delon Ramsey MD, FACS 12/14/2017 Instructions Instructions not supported for this document typeNo Instructions Recorded Medical Equipment - Implanted Devices Includes: Current and historical DevicesNo Medical Equipment Recorded Medications Includes: Current and historical Medications Current Medications (continue as prescribed) Moxifloxacin HCl 0.5% Ophthalmic Solution 04/23/2020 Provider: Syd Rodriguez DO Diagnosis: Age-related nuclear cataract, left eye Three days prior to surgery start one drop four times a day in the left eye BromSite 0.075% Ophthalmic Solution 04/23/2020 Prov ider: Syd Rodriguez DO Diagnosis: Age-related nuclear cataract, left eye Three days prior to surgery start one dr op two times a day in the left eye, RUN CARD. SEE PHARM NOTES Inveltys 1% Ophthalmic Suspension 04/23/2020 Provid er: Syd Rodriguez DO Diagnosis: Age-related nuclear cataract, left eye Day of surgery remove patch start one dr op two times a day in the left eye, RUN CARD. SEE PHARM NOTES Simvastatin 40MG Oral Tablet 12/14/2017 Provider: Diagnosis: Calcium 600MG Oral Tablet 12/14/2017 Provider: Diagnosis: [facility] Vitamin C 500MG Oral Tablet 12/14/2017 Provider : Diagnosis: Aspirin 81MG Oral Tablet Delayed Release 12/14/2017 Provider: Diagnosis: ChoiceFul Multivitamin Oral Capsule 12/14/2017 Prov ider: Diagnosis: Medications Administered Includes: Administered Medications in patient's chartNo Administered Medications Recorded Vital Signs Includes: Vital Signs from 05/04/2019 through 05/04/2020No Vital Signs Recorded For Specified Dates Results Includes: Results from 05/04/2019 through 05/04/2020No Results Recorded For Specified Dates History of Present Illness History of Present Illness not supported for this document typeNo History of Present Illness Recorded Social History Description Last Updated Tobacco non-user 04/02/2020 No consumption of alcohol 04/02/2020 No tobacco use 04/02/2020 Not using drugs 04/02/2020 Smoking status : Never smoker 04/02/2020 Never smoked 09/19/2019 Procedures and Surgical History Includes: Procedures from 05/04/2019 through 05/04/2020 Procedures Code Diagnosis Performing Provider Service Location Service Date Intermediate Eye Exam Established Patient (Signi/Sep Eval. & Man.) [id number] Age- related nuclear cataract, left eye Syd Vega MD [facility] 04/23/2020 Ophthalmic biometry - IOL Master with IO L calculation (Left side, WAIVER OF LIABILITY ON FILE (ABN)) [id number] Age-related nuclear cataract, left eye Syd Vega MD [facility] 04/23/2020 Intermediate Eye Exam Established Patient [id number] Age-related nuclear cataract, bilateral Syd Vega MD [facility] 04/02/2020 Intermediate Eye Exam Established Patient [id number] Nexdtve age-related mclr degn, bilateral, early dry stage, Posterior subcapsular polar age-related cataract, bilateral, Age-related nuclear cataract, bilateral, Cortical age-related cataract, left eye Delon Ramsey MD, SHAHANA Ramsey MD [facility] 02/27/2020 [facility], with interpretation and re port (WAIVER OF LIABILITY ON FILE (ABN)) [id number] Nexdtve age-related mclr degn, bilateral , early dry stage Delon Herrera MD, SHAHANA Ramsey MD [facility] 09/19/2019 Comprehensive eye exam established patient (Signi/Sep Eval. & Man.) [id number] Nexdtve age-related mclr degn, bilateral, early dry stage, Age-related nuclear cataract, bilateral, Cortical age-related cataract, left eye, Posterior subcapsular polar age-related cataract, bilateral Delon Ramsey MD, SHAHANA Ramsey MD [facility] 09/19/2019 Surgical History Last Updated Surgical / procedural history Cyst Kevin hank on Breast 1985 1998. Hip replaced 2005. Nose Basal Cancer 06/2010, 12/24/2019 Medical History Includes: Medical History in patient's chart Description Last Updated Currently wearing eyeglasses 09/19/2019 History of hyperlipidemia 09/19/2019 No recent change in medical history 09/19/2019 Family History Includes: Family History in patient's chart Description Last Updated Family medical history was unknown 04/02/2020 Review of Systems Review of Systems not supported for this document typeNo Review of Systems Recorded Mental Status Mental Status not supported for this document typeNo Mental Status Recorded Functional Status Functional Status not supported for this document typeNo Functional Status Recorded Physical Exam Physical Exam not supported for this document typeNo Physical Exam Recorded Immunizations Includes: Immunizations in patient's chartNo Immunizations Recorded Allergies Includes: Active, inactive, and resolved AllergiesNo Known Allergies Encounters Includes: Encounters from 05/04/2019 through 05/04/2020 Encounter Provider Location Date Check-In Time Check-Out Time D iagnosis Extracapsular cataract removal w/IOL implant Syd Diallo in [facility] 05/03/2020 04/23/2020 7:50AM 7:00AM 1 WK PREOP FOR SURGERY Syd Vega MD [facility] 04/23/2020 8:42AM 9:42AM Cataract Senile Nuclear CATARACT EVAL - REFERRAL FR DR. KRISTIN Rowley MD [facility] 04/02/2020 12:56PM 2:34PM Corneal Dystroph y Anterior, Dry Eye Syndrome, Cataract Senile Nuclear, Vitreous Disorders Degeneration, Macular Degeneration Nonexudative Bilateral Early Dry Stage 6 Month Follow-Up Delon Ramsey MD, FACS Delon Ramsey MD [facility] 02/27/2020 1:54PM 3:18PM Cataract Senile Post erior Subcapsular Polar, Cataract Senile Nuclear, Dry Eye Syndrome Both Eyes, Cataract Senile Cortical Left, Macular Degeneration Nonexudative Bilateral Early Dry Stage 10 Month followup with Testing Delon Ramsey MD, FACS Delon Ramsey MD [facility] 09/19/2019 11:55AM 12:47PM Macular Degenera tion Nonexudative Bilateral Early Dry Stage, Cataract Senile Cortical Left, Cataract Senile Nuclear, Cataract Senile Posterior Subcapsular Polar, Dry Eye Syndrome Both Eyes Insurance Includes: Active Insurance Policies Plan Name Member ID Group # Subscriber Relationship Effective Da willie 1 - [employer]AUTH NEEDED!!!!!! [id number] Janet Fam Boyd 02/23/2020 - Unknown Advance Directives Includes: Current Advance DirectivesNo Advance Directives Recorded Health Concerns Includes: Active Health ConcernsNo Active Health Concerns Recorded Goals Includes: Active GoalsNo Active Goals Recorded Interventions Includes: Interventions for active GoalsNo Interventions Recorded Evaluations & Outcomes Includes: Evaluations & Outcomes for active GoalsNo Outcomes Recorded
--- OUTSIDE RECORDS SUMMARY | 2020-05-10 09:02 | CCD ---
Author Author [facility] Organization [facility] Address Unknown Phone Unavailable Care Team Providers Care Instrument Repair Technician Name Role Phone Ashish Herrera, Rosemary Jernigan MD, FACS Unavailable Unavailable Hinojosa Herrera, Rosemary Jernigan MD, FACS Unavailable Unavailable Hinojosa Herrera, Rosemary Jernigan MD, FACS Unavailable Unavailable Hinojosa Herrera, Rosemary Jernigan MD, FACS Unavailable Unavailable Hinojosa Herrera, Rosemary Jernigan MD, FACS Unavailable Unavailable Hinojosa Herrera, Rosemary Jernigan MD, FACS Unavailable Unavailable Hinojosa Herrera, Rosemary Jernigan MD, FACS Unavailable Unavailable Hinojosa Herrera, Rosemary Jernigan MD, FACS Unavailable Unavailable Hinojosa Herrera, Rosemary Jernigan MD, FACS Unavailable Unavailable Hinojosa Herrera, Rosemary Jernigan MD, FACS Unavailable Unavailable Hinojosa Herrera, Rosemary Jernigan MD, FACS Unavailable Unavailable Hinojosa Herrera, Rosemary Jernigan MD, FACS Unavailable Unavailable Hinojosa Herrera, Rosemary Jernigan MD, FACS Unavailable Unavailable Hinojosa Herrera, Rosemary Jernigan MD, FACS Unavailable Unavailable Hinojosa Herrera, Rosemary Jernigan MD, FACS Unavailable Unavailable Hinojosa Herrera, Rosemary Jernigan MD, FACS Unavailable Unavailable Hinojosa Herrera, Rosemary Jernigan MD, FACS Unavailable Unavailable Hinojosa Herrera, Rosemary Jernigan MD, FACS Unavailable Unavailable Hinojosa Herrera, Rosemary Jernigan MD, FACS Unavailable Unavailable Hinojosa Herrera, Rosemary Jernigan MD, FACS Unavailable Unavailable Hinojosa Herrera, Rosemary Jernigan MD, FACS Unavailable Unavailable Hinojosa Herrera, Rosemary Jernigan MD, FACS Unavailable Unavailable Hinojosa Herrera, Rosemary Jernigan MD, FACS Unavailable Unavailable Hinojosa Herrera, Rosemary Jernigan MD, FACS Unavailable Unavailable Hinojosa Herrera, Rosemary Jernigan MD, FACS Unavailable Unavailable Hinojosa Herrera, Rosemary Jernigan MD, FACS Unavailable Unavailable Hinojosa Herrera, Rosemary Jernigan MD, FACS Unavailable Unavailable Hinojosa Herrera, Rosemary Jernigan MD, FACS Unavailable Unavailable Hinojosa Herrera, Rosemary Jernigan MD, FACS Unavailable Unavailable Hinojosa Herrera, Rosemary Jernigan MD, FACS Unavailable Unavailable Hinojosa Herrera, Rosemary Jernigan MD, FACS Unavailable Unavailable Hinojosa Herrera, Rosemary Jernigan MD, FACS Unavailable Unavailable Hinojosa Herrera, Rosemary Jernigan MD, FACS Unavailable Unavailable Rosemary Hill MD, FACS Unavailable Unavailable JAYNA, Rosemary. ALBERTO DO Unavailable [phone] JAYNA, A. ALBERTO DO Unavailable [phone] JAYNA, A. ALBERTO DO Unavailable [phone] JAYNA, A. ALBERTO DO Unavailable [phone] JAYNA, A. ALBERTO DO Unavailable [phone] JAYNA, A. ALBERTO DO Unavailable [phone] JAYNA, A. ALBERTO DO Unavailable [phone] JAYNA, A. ALBERTO DO Unavailable [phone] JAYNA, A. ALBERTO DO Unavailable [phone] JAYNA, A. ALBERTO DO Unavailable [phone] JAYNA, A. ALBERTO DO Unavailable [phone] JAYNA, A. ALBERTO DO Unavailable [phone] JAYNA, A. ALBERTO DO Unavailable [phone] JAYNA, A. ALBERTO DO Unavailable [phone] JAYNA, A. ALBERTO DO Unavailable [phone] JAYNA, A. ALBERTO DO Unavailable [phone] JAYNA, A. ALBERTO DO Unavailable [phone] JAYNA, A. ALBERTO DO Unavailable [phone] JAYNA, A. ALEBRTO DO Unavailable [phone] JAYNA, A. ALBERTO DO Unavailable [phone] JAYNA, Rosemary. ALBERTO DO Unavailable [phone] Re-disclosure Warning The records that you are about to access may contain information from federally-assisted alcohol or drug abuse programs. If such information is present, then the following federally mandated warning applies: This information has been disclosed to you from records protected by federal confidentiality rules (42 CFR part 2). The federal rules prohibit you from making any further disclosure of this information unless further disclosure is expressly permitted by the written consent of the person to whom it pertains or as otherwise permitted by 42 CFR part 2. A general authorization for the release of medical or other information is NOT sufficient for this purpose. The Federal rules restrict any use of the information to criminally investigate or prosecute any alcohol or drug abuse patient.The records that you are about to access may contain highly sensitive health information, the redisclosure of which is protected by Article 27-F of the [facility] Public Health law. If you continue you may have access to information: Regarding HIV / AIDS; Provided by facilities licensed or operated by the [facility] Office of Mental Health; or Provided by the [facility] Office for People With Developmental Disabilities. If such information is present, then the following [facility] mandated warning applies: This information has been disclosed to you from confidential records which are protected by state law. State law prohibits you from making any further disclosure of this information without the specific written consent of the person to whom it pertains, or as otherwise permitted by law. Any unauthorized further disclosure in violation of state law may result in a fine or mcc sentence or both. A general authorization for the release of medical or other information is NOT sufficient authorization for further disc losure. Allergies and Adverse Reactions Type Description Substance Reaction Status Data Source(s ) Allergy to substance No Known Allergies No known allergies (situation ) [place] (Delon Herrera MD [facility]) Allergy to substance No Known Allergies No known allergies (situation ) [place] (Delon Herrera MD [facility]) Allergy to substance No Known Allergies No known allergies (situation ) [place] (Delon Herrera MD [facility]) Allergy to substance No Known Allergies No known allergies (situation ) [place] (Delon Herrera MD [facility]) Allergy to substance No Known Allergies No known allergies (situation ) [place] (Delon Herrera MD [facility]) Family History Family Member Name Family Member Gender Family Member Status Date o f Status Description Data Source(s) Unknown Unknown Problem [facility] Unknown Unknown [facility] Unknown Female Problem [facility] ([facility] ) Encounters Encounter Providers Location Date Indications Data Source(s ) Outpatient<td ID="encounterTypeDescripti onID0">POST OP VISIT WITH PRE- OP</td><td>Alberto Rodriguez DO</td><td>Delon Ramsey MD [facility]</td><td>05/05/2020</td><td>8:16AM</td><td>9:32AM</td><td><content ID="encounterDiagnosisID0-0">Cataract Senile Nuclear</content>, <content ID="encounterDiagnosisID0-1">Pseudophakia</content></td> Attender: ALBERTO Vega MD [facility] 05/05/2020 08:16:00 AM EST - 05/05/2020 09:32:00 AM EST PseudophakiaCataract Senile Nuclear [place] (Delon Herrera MD [facility]) Pseudophakia Cataract Senile Nuclear Outpatient<td ID="encounterTypeDescripti onID2">1 WK PREOP FOR SURGERY</td><td>Alberto Rodriguez DO</td><td>Delon Ramsey MD [facility]</td><td>04/23/2020</td><td>8:42AM</td><td>9:42AM</td><td><content ID="encounterDiagnosisID2-0">Cataract Senile Nuclear</content></td> Attender: ALBERTO Vega MD [facility] 04/23/2020 08:42:00 AM EST - 04/23/2020 09:42:00 AM EST Cataract Senile NuclearCataract Senile Nuclear [place] (Delon Herrera MD [facility]) Cataract Senile Nuclear Cataract Senile Nuclear Outpatient<td ID="encounterTypeDescripti onID1">Extracapsular cataract removal w/IOL implant</td><td>Alberto Rodriguez DO</td><td>[facility]</td><td>05/03/2020</td><td>04/23/2020 7:50AM</td><td>7:00AM</td><td></td> Attender: ALBERTO RODRIGUEZ DO [facility] 03/27 07:50:00 AM EST - 05/03/2020 07:00:00 AM EST [place] (Delon Herrera MD [facility]) Outpatient<td ID="encounterTypeDescripti onID3">CATARACT EVAL - REFERRAL FR DR. FOSTER</td><td>Alberto Rodriguez DO</td><td>Delon Ramsey MD [facility]</td><td>04/02/2020</td><td>12:56PM</td><td>2:34PM</td><td><content ID="encounterDiagnosisID3-0">Corneal Dystrophy Anterior</content>, <content ID="encounterDiagnosisID3-1">Dry Eye Syndrome</content>, <content ID="encounterDiagnosisID3-2">Cataract Senile Nuclear</content>, <content ID="encounterDiagnosisID3-3">Vitreous Disorders Degeneration</content>, <content ID="encounterDiagnosisID3-4">Macular Degeneration Nonexudative Bilateral Early Dry Stage</content></td> Attender: ALBERTO Vega MD [facility] 04/02/2020 12:56:00 PM EST - 04/02/2020 02:34:00 PM ES T Corneal Dystrophy AnteriorCorneal Dystrophy AnteriorMacular Degeneration Nonexudative Bilateral Early Dry StageVitreous Disorders DegenerationCataract Senile NuclearDry Eye SyndromeMacular Degeneration Nonexudative Bilateral Early Dry StageVitreous Disorders DegenerationCataract Senile NuclearDry Eye Syndrome [place] (Delon Herrera MD [facility]) Corneal Dystrophy Anterior Corneal Dystrophy Anterior Macular Degeneration Nonexudative Bilate ral Early Dry Stage Vitreous Disorders Degeneration Cataract Senile Nuclear Dry Eye Syndrome Macular Degeneration Nonexudative Bilate ral Early Dry Stage Vitreous Disorders Degeneration Cataract Senile Nuclear Dry Eye Syndrome Office Visit, Est Pt., Level 2 PC [address] [place] [address] 03/03/2020 12:00:00 AM EST eCW1 ([facility]) Outpatient<td ID="encounterTypeDescripti onID4">6 Month Follow-Up</td><td>Delon Ramsey MD, FACS</td><td>Delon Ramsey MD [facility]</td><td>02/27/2020</td><td>1:54PM</td><td>3:18PM</td><td><content ID="encounterDiagnosisID4-0">Cataract Senile Posterior Subcapsular Polar</content>, <content ID="encounterDiagnosisID4-1">Cataract Senile Nuclear</content>, <content ID="encounterDiagnosisID4-2">Dry Eye Syndrome Both Eyes</content>, <content ID="encounterDiagnosisID4-3">Cataract Senile Cortical Left</content>, <content ID="encounterDiagnosisID4-4">Macular Degeneration Nonexudative Bilateral Early Dry Stage</content></td> Attender: Delon Herrera MD, FACS Delon Ramsey MD [facility] 02/27/2020 01:54:00 PM EST - 02/27/2020 03:18:00 PM EST Cataract Senile Cortical LeftCataract Se nile Posterior Subcapsular PolarCataract Senile Cortical LeftCataract Senile Posterior Subcapsular PolarMacular Degeneration Nonexudative Bilateral Early Dry StageDry Eye Syndrome Both EyesCataract Senile NuclearMacular Degeneration Nonexudative Bilateral Early Dry StageDry Eye Syndrome Both EyesCataract Senile Nuclear [place] (Delon Herrera MD [facility]) Cataract Senile Cortical Left Cataract Senile Posterior Subcapsular Po lar Cataract Senile Cortical Left Cataract Senile Posterior Subcapsular Po lar Macular Degeneration Nonexudative Bilate ral Early Dry Stage Dry Eye Syndrome Both Eyes Cataract Senile Nuclear Macular Degeneration Nonexudative Bilate ral Early Dry Stage Dry Eye Syndrome Both Eyes Cataract Senile Nuclear Outpatient [address] [facility] [address] 01/15/2020 12:00:00 AM EDT eCW1 ([facility]) Outpatient<td ID="encounterTypeDescripti onID5">10 Month followup with Testing</td><td>Delon Ramsey MD, FACS</td><td>Delon Ramsey MD [facility]</td><td>09/19/2019</td><td>11:55AM</td><td>12:47PM</td><td><content ID="encounterDiagnosisID5-0">Macular Degeneration Nonexudative Bilateral Early Dry Stage</content>, <content ID="encounterDiagnosisID5-1">Cataract Senile Cortical Left</content>, <content ID="encounterDiagnosisID5-2">Cataract Senile Nuclear</content>, <content ID="encounterDiagnosisID5-3">Cataract Senile Posterior Subcapsular Polar</content>, <content ID="encounterDiagnosisID5-4">Dry Eye Syndrome Both Eyes</content></td> Attender: Delon Herrera MD, FACS Delon Ramsey MD [facility] 09/19/2019 11:55:00 AM EDT - 09/19/2019 12:47:00 PM ED T Cataract Senile Posterior Subcapsular PolarCataract Senile Cortical LeftCataract Senile Posterior Subcapsular PolarCataract Senile Cortical LeftDry Eye Syndrome Both EyesCataract Senile NuclearMacular Degeneration Nonexudative Bilateral Early Dry StageDry Eye Syndrome Both EyesCataract Senile NuclearMacular Degeneration Nonexudative Bilateral Early Dry StageDry Eye Syndrome Both EyesCataract Senile Posterior Subcapsular PolarCataract Senile NuclearCataract Senile Cortical LeftMacular Degeneration Nonexudative Bilateral Early Dry StageDry Eye Syndrome Both EyesCataract Senile Posterior Subcapsular PolarCataract Senile NuclearCataract Senile Cortical LeftMacular Degeneration Nonexudative Bilateral Early Dry StageDry Eye Syndrome Both EyesCataract Senile Posterior Subcapsular PolarCataract Senile NuclearCataract Senile Cortical LeftMacular Degeneration Nonexudative Bilateral Early Dry Stage [place] (Delon Herrera MD [facility]) Cataract Senile Posterior Subcapsular Po lar Cataract Senile Cortical Left Cataract Senile Posterior Subcapsular Po lar Cataract Senile Cortical Left Dry Eye Syndrome Both Eyes Cataract Senile Nuclear Macular Degeneration Nonexudative Bilate ral Early Dry Stage Dry Eye Syndrome Both Eyes Cataract Senile Nuclear Macular Degeneration Nonexudative Bilate ral Early Dry Stage Dry Eye Syndrome Both Eyes Cataract Senile Posterior Subcapsular Po lar Cataract Senile Nuclear Cataract Senile Cortical Left Macular Degeneration Nonexudative Bilate ral Early Dry Stage Dry Eye Syndrome Both Eyes Cataract Senile Posterior Subcapsular Po lar Cataract Senile Nuclear Cataract Senile Cortical Left Macular Degeneration Nonexudative Bilate ral Early Dry Stage Dry Eye Syndrome Both Eyes Cataract Senile Posterior Subcapsular Po lar Cataract Senile Nuclear Cataract Senile Cortical Left Macular Degeneration Nonexudative Bilate ral Early Dry Stage [place] [address] [facility] [address] 06/17/2019 12:00:00 AM EDT eCW1 ([facility]) Immunizations Vaccine Date Status Description Data Source(s) influenza, recombinant, quadrIvalent,injectable, prese rvative free 01/15/2020 08:37:00 AM EDT completed eCW1 ([facility]) influenza, recombinant, quadrIvalent,injectable, prese rvative free 01/15/2020 08:37:00 AM EDT completed eCW1 ([facility]) Medications Medication Brand Name Start Date Product Form Dose Route Admi nistrative Instructions Pharmacy Instructions Status Indications Reaction Description Data Source(s) BromSite 0.075% Ophthalmic Solution BromSite 0.075% Ophthalm ic Solution 05/05/2020 12:00:00 AM EST active bromfenac 0.75 MG/ML Ophthalmic Solution [Bromsite] [place] (Delon Herrera MD [facility]) 0.075 % 05/05/2020 12:00:00 AM EST drops 5 INSTILL 1 DROP IN RIGHT EYE TWO TIMES A DAY START 3 DAYS PRIOR TO SURGERY INSTILL 1 DROP IN RIGHT EYE TWO TIMES A DAY START 3 DAYS PRIOR TO SURGERY SOLD: 05/09/2020 [facility] Inveltys 1% Ophthalmic Suspension Inveltys 1% Ophthalmic Kiki pension 05/05/2020 12:00:00 AM EST active loteprednol etabonate 10 MG/ML Ophthalmic Suspension [Inveltys] [place] (Delon Herrera MD [facility]) 1 % 05/05/2020 12:00:00 AM EST drops,suspension 2 INSTILL 1 DROP TWO TIMES A DAY IN THE RIGHT EYE - START DAY OF SURGERY AFTER REMOVING PATCH INSTILL 1 DROP TWO TIMES A DAY IN THE RIGHT EYE - START DAY OF SURGERY AFTER REMOVING PATCH SOLD: 05/09/2020 [facility] 0.075 % 04/24/2020 12:00:00 AM EST drops 5 STARTING 3 DAYS PRIOR TO SURGERY, INSTILL ONE DROP IN THE LEFT EYE 2 TIMES A DAY STARTING 3 DAYS PRIOR TO SURGERY, INSTILL ONE DROP IN THE LEFT EYE 2 TIMES A DAY SOLD: 04/26/2020 [facility] moxifloxacin 5 MG/ML Ophthalmic Solution 0.5 % MOXIFLOXACIN HCL 04/24/2020 12:00:00 AM EST drops 3 INSTILL 1 DROP I N THE LEFT EYE 4 TIMES A DAY STARTING 3 DAYS BEFORE SURGERY INSTILL 1 DROP IN THE LEFT EYE 4 TIMES A DAY STARTING 3 DAYS BEFORE SURGERY SOLD: 04/26/2020 [facility] moxifloxacin 5 MG/ML Ophthalmic Solution 0.5 % MOXIFLOXACIN HCL 04/24/2020 12:00:00 AM EST drops 3 INSTILL 1 DROP I N THE LEFT EYE 4 TIMES A DAY STARTING 3 DAYS BEFORE SURGERY INSTILL 1 DROP IN THE LEFT EYE 4 TIMES A DAY STARTING 3 DAYS BEFORE SURGERY SOLD: 05/09/2020 [facility] 1 % 04/24/2020 12:00:00 AM EST drops,suspension 2 DAY OF SURGERY, REMOVE PATCH & INSTILL ONE DROP IN THE LEFT EYE TWO TIMES A DAY DAY OF SURGERY, REMOVE PATCH & INSTILL ONE DROP IN THE LEFT EYE TWO TIMES A DAY SOLD: 04/26/2020 [facility] BromSite 0.075% Ophthalmic Solution BromSite 0.075% Ophthalm ic Solution 04/23/2020 12:00:00 AM EST aborted bromfenac 0.75 MG/ML Ophthalmic Solution [Bromsite] [place] (Delon Herrera MD [facility]) Inveltys 1% Ophthalmic Suspension Inveltys 1% Ophthalmic Kiki pension 04/23/2020 12:00:00 AM EST aborted loteprednol etabonate 10 MG/ML Ophthalmic Suspension [Inveltys] [place] (Delon Herrera MD [facility]) moxifloxacin 5 MG/ML Ophthalmic Solution Moxifloxacin HCl 0.5% Ophthalmic Solution Moxifloxacin HCl 0.5% Ophthalmic Solution 04/23/2020 12:00:00 AM EST active moxifloxacin 5 MG/ML Oph thalmic Solution [place] (Delon Herrera MD [facility]) 0.1 % 11/19/2019 12:00:00 AM EDT cream 60 APPLY A SMALL AMOUNT TOPICALLY TO AFFECTED AREA(S) TWICE A DAY APPLY A SMALL AMOUNT TOPICALLY TO AFFECT ED AREA(S) TWICE A DAY SOLD: 11/20/2019 [facility] 40 mg 11/19/2019 12:00:00 AM EDT tablet 90 TAKE ONE TABLET BY MOUTH EVERY EVENING TAKE ONE TABLET BY MOUTH EVERY EVENING SOLD: 11/20/2019 [facility] 40 mg 11/19/2019 12:00:00 AM EDT tablet 90 TAKE ONE TABLET BY MOUTH EVERY EVENING TAKE ONE TABLET BY MOUTH EVERY EVENING SOLD: 04/05/2020 [facility] 50 mcg/actuation 11/19/2019 12:00:00 AM EDT spray,suspension 16 SPRAY 2 SPRAYS EACH NOSTRIL ONCE A DAY SPRAY 2 SPRAYS EACH NOSTRIL ONCE A DAY SOLD: 11/20/2019 [facility] 40 mg 09/25/2018 12:00:00 AM EDT tablet 90 TAKE ONE TABLET BY MOUTH EVERY EVENING AT BEDTIME TAKE ONE TABLET BY MOUTH EVERY EVENING AT BEDTIME SOLD : 07/24/2019 [facility] Insurance Providers Payer name Policy type / Coverage type Policy ID Covered libertarian ID Covered libertarian's relationship to prado Policy Prado Plan Information WELLCARE [id number] SP [id number] WELLCARE [id number] SP [id number] WELLCARE O [id number] S [id number] TODAYS OPTIONS [id number] SP [id number] TODAYS OPTIONS [id number] SP [id number] Today's Options Medicare Commercial [id number] Self [id number] Telligent Systems [id number] Self [id number] ANSI-Medicare Part B [id number] ANSI-Medicare Part B [id number] ANSI-Medicare Part B [id number] Today's Option Medicare Commercial [id number] Self [id number] ANSI-Medicare Part B [id number] ANSI-Medicare Part B [id number] Todays Options/Amer Progress Medigap Part B [id number] Self [id number] Lifetime Benefit Solution Medigap Part B [id number] Family De pendent [id number] Todays Options Commercial [id number] Self [id number] Todays Options/Amer Progress Medigap Part B [id number] Self [id number] Lifetime Benefit Solution Medigap Part B [id number] Family De pendent [id number] Todays Options Commercial [id number] Self [id number] Todays Options/Amer Progress Medigap Part B [id number] Self [id number] Lifetime Benefit Solution Medigap Part B [id number] Family De pendent [id number] Todays Options Commercial [id number] Self [id number] TODAYS OPTIONS/BENINESE O [id number] S [id number] Todays Options/Amer Progress Medigap Part B [id number] Self [id number] Lifetime Benefit Solution Medigap Part B [id number] Family De pendent [id number] Todays Options Commercial [id number] Self [id number] Todays Options/Amer Progress Medigap Part B [id number] Self [id number] Lifetime Benefit Solution Medigap Part B [id number] Family De pendent [id number] Todays Options Commercial [id number] Self [id number] TODAYS OPTIONS [id number] SP [id number] Today's Options Medicare Commercial [id number] Self [id number] TODAYS OPTIONS [id number] SP [id number] Todays Options/Amer Progress Medigap Part B Self Lifetime Benefit Solution Medigap Part B Family De pendent Todays Options Commercial Self [id number] Problems, Conditions, and Diagnoses Code Display Name Description Problem Type Effective Dates Data Source(s) V43.1 Pseudophakia Pseudophakia Problem 05/05/2020 12:00:00 A M EST [place] (Delon Herrera MD [facility]) H18.593 Corneal Dystrophy Anterior Corneal Dystrophy Anterior Problem 04/02/2020 12:00:00 AM EST [place] (Delon Herrera MD [facility]) H18.593 Corneal Dystrophy Anterior Corneal Dystrophy Anterior Problem 04/02/2020 12:00:00 AM EST [place] (Delon Herrera MD [facility]) 366.14 Cataract Senile Posterior Subcapsular Po lar Cataract Senile Posterior Subcapsular Polar Problem 12/14/2017 12:00:00 AM EDT - 04/02/2020 12:00:00 AM EST [place] (Delon Herrera MD [facility]) 366.14 Cataract Senile Posterior Subcapsular Po lar Cataract Senile Posterior Subcapsular Polar Problem 12/14/2017 12:00:00 AM EDT - 04/02/2020 12:00:00 AM EST [place] (Delon Herrera MD [facility]) Surgeries/Procedures Procedure Description Date Indications Data Source(s) Extracapsular extraction of lens (procedure) History o f extracapsular cataract extraction PCIOL OS by Dr. Rodriguez 05/03/2020 05/05/2020 12:00:00 AM EST [place] (Delon Herrera MD [facility]) OPH BMTRY PRTL COHER INTRFRMTRY IO LENS PWR DARLENE Ophtha lmic biometry - IOL Master with IOL calculation (26, RT) 05/05/2020 12:00:00 AM EST [facility] [place] (Delon Herrera MD [facility]) OPH BMTRY PRTL COHER INTRFRMTRY IO LENS PWR DARLENE Ophtha lmic biometry - IOL Master with IOL calculation (Left side, WAIVER OF LIABILITY ON FILE (ABN)) 04/23/2020 12:00:00 AM EST [place] (Delon Herrera MD [facility]) Intermediate Eye Exam Established Patient (Signi/Sep E cam. & Man.) Intermediate Eye Exam Established Patient (Signi/Sep Eval. & Man.) 04/23/2020 12:00:00 AM EST [place] (Delon Herrera MD [facility]) Intermediate Eye Exam Established Patient Intermediate Eye Exam Established Patient 04/02/2020 12:00:00 AM EST [place] (Inderjit Herrera MD [facility]) Intermediate Eye Exam Established Patient Intermediate Eye Exam Established Patient 02/27/2020 12:00:00 AM EST [place] (Inderjit Herrera MD [facility]) Immunization: Flublok Quadrivalent (18 years & older) 0.5mL IM (Influenza) 01/15/2020 12:00:00 AM EDT eCW1 ([facility]) Surgical / procedural history Cyst Kevin hank on Breast 1985 1998. Hip replaced 2005. Nose Basal Cancer 06/2010, Surgical / procedural history Cyst Kevin hank on Breast 1985 1998. Hip replaced 2005. Nose Basal Cancer 06/2010, 12/24/2019 12:00:00 AM EDT [place] (Delon Herrera MD [facility]) Surgical / procedural history Cyst Kevin hank on Breast 1985 1998. Hip replaced 2005. Nose Basal Cancer 06/2010, Surgical / procedural history Cyst Kevin hank on Breast 1985 1998. Hip replaced 2005. Nose Basal Cancer 06/2010, 12/24/2019 12:00:00 AM EDT [place] (Delon Herrera MD [facility]) Surgical / procedural history Cyst Kevin hank on Breast 1985 1998. Hip replaced 2005. Nose Basal Cancer 06/2010 Surgical / procedural history Cyst Kevin hank on Breast 1985 1998. Hip replaced 2005. Nose Basal Cancer 06/201012/24/2019 12:00:00 AM EDT [facility] (Delon Herrera MD [facility]) X-Ray Hip Unilateral With Pelvis 2-3 Views 12/12/2019 12:00:00 AM EDT MEDENT ([facility] ) Comprehensive eye exam established patient (Signi/Sep Eval. & Man.) Comprehensive eye exam established patient (Signi/Sep Eval. & Man.) 09/19/2019 12:00:00 AM EDT [facility] (Delon Herrera MD [facility]) Scodi Retina, with interpretation and re port (WAIVER OF LIABILITY ON FILE (ABN)) Scodi Retina, with interpretation and re port (WAIVER OF LIABILITY ON FILE (ABN)) 09/19/2019 12:00:00 AM EDT [facility] (Inderjit Herrera MD [facility]) PHYSICIAN TELEPHONE EVALUATION 11-20 MIN 06/17/2019 12 :00:00 AM EDT eCW1 ([facility]) Results ID Date Data Source [id number] 05/05/2020 10:00:00 AM EST [facility] Name Value Range Interpretation Code Description Data Nayana rce(s) Supporting Document(s) SARS coronavirus 2 RNA Not Detected [facility] [place] This lab was ordered by [facility] and reported by [facility]. ID Date Data Source [id number] 04/28/2020 12:20:00 PM EST [facility] Name Value Range Interpretation Code Description Data Nayana rce(s) Supporting Document(s) SARS coronavirus 2 RNA Not Detected [facility] [place] This lab was ordered by [facility] and reported by [facility]. Procedure Social History Code Duration Value Status Description Data Source(s ) Smoking 05/05/2020 09:38:13 AM EST Never smoked tobacco (findi ng) completed Never smoked tobacco (finding) [facility] (Delon Herrera MD [facility]) Smoking 04/02/2020 02:33:38 PM EST Never smoked tobacco (findi ng) completed Never smoked tobacco (finding) [facility] (Delon Herrera MD [facility]) Smoking 03/03/2020 12:00:00 AM EST Never Smoker completed Never S moker eCW1 ([facility]) Smoking 12/24/2019 01:57:52 PM EDT Never smoked tobacco (findi ng) completed Never smoked tobacco (finding) [facility] (Delon Herrera MD [facility]) Smoking 12/24/2019 01:54:48 PM EDT Never smoked tobacco (findi ng) completed Never smoked tobacco (finding) [facility] (Delon Herrera MD [facility]) Smoking 12/24/2019 01:52:18 PM EDT Never smoked tobacco (findi ng) completed Never smoked tobacco (finding) [facility] (Delon Herrera MD [facility]) Smoking 06/17/2019 12:00:00 AM EDT Never Smoker completed Never S moker eCW1 ([facility]) Vital Signs ID Date Data Source UNK Name Value Range Interpretation Code Description Data Source(s) Diastolic blood pressure 75 mm[Hg] 75 mm[Hg] eCW1 ([facility]) Systolic blood pressure 167 mm[Hg] 167 mm[Hg] e CW1 ([facility]) Body mass index (BMI) [Ratio] 28.83 kg/m2 28.83 kg/m2 W1 ([facility]) Body height 64 [in_i] 64 [in_i] W1 ([facility]) Body weight 76.2 kg 76.2 kg W1 ([facility]) Body weight 168 [lb_av] 168 [lb_av] [facility] Patient Treatment Plan of Care Planned Activity Planned Date Details Description Data Source (s) Inveltys 1% Ophthalmic Suspension 05/05/2020 12:00:00 AM EST [facility] (Delon Herrera MD [facility]) BromSite 0.075% Ophthalmic Solution 05/05/2020 12:00:00 AM EST [facility] (Delon Herrera MD [facility]) Inveltys 1% Ophthalmic Suspension 04/23/2020 12:00:00 AM EST [facility] (Delon Herrera MD [facility]) BromSite 0.075% Ophthalmic Solution 04/23/2020 12:00:00 AM EST [facility] (Delon Herrera MD [facility]) moxifloxacin 5 MG/ML Ophthalmic Solution 04/23/2020 12:00:00 AM EST [facility] (Delon Herrera MD [facility])
--- OUTSIDE RECORDS SUMMARY | 2020-05-10 09:02 | CCD ---
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 25870196199352 SCC in situ nose Problem Lipoma of torso D17.1 Active 17812180 no allen ge in size of probable lipoma Problem History of basal cell cancer Z85.828 Active 428 996721 BCC right dorsum of nose Problem Gastro-esophageal reflux disease without esophagitis K21.9 Active 359688879 Problem History of adenomatous polyp of colon Z86.010 Ac tive 130209642 Problem Encounter for immunization Z23 Active 03007 6002 Problem Mixed hyperlipidemia E78.2 Active 091635390 Problem 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 I think her glasses are transferring some of the efudex to the right nasal bridge region Problem Carcinoma in situ of skin of other parts of face D 04.39 Active 90516821 quite a lot of inflammation with efudex Problem Stress incontinence in female N39.3 Active 60 724251 Problem Dermatitis L30.9 Active 99068842 has been usi ng a 15 gm tube betamethasone valerate cr .1 % since 2007, would like refilled. Uses rarely and never on face Problem Stress incontinence (female) (male) N39.3 Acti ve 75862711 Problem Elevated blood-pressure reading, without diagnos is of hypertension R03.0 Active 928126581 Problem Sun-damaged skin L57.8 Active 32561658 Problem Medicare annual wellness visit, subsequent Z00.00 Active 337311095 Problem Sciatica of right side M54.31 Active 34421687 Problem Non-seasonal allergic rhinitis, unspecified trigger J30.89 Active 95660908 ALLERGIES No Known Allergies ENCOUNTERS from 1941 to 2020-03-04 Encounter Location Date Provider Diagnosis [facility] [address] [place] [id number] Feb, Mali Ashwin Other screening mamm ogram Z12.31 and Other screening breast examination Z12.39 IMMUNIZATIONS Vaccine Route Administration Date Status Influenza (18 yrs & older) Flublok IM Intramuscular Jan 15, 2020 Administered Pneumococcal Adult 0.5mL (Pneumovax 23) IM Intramuscular May Administered Influenza (18 yrs & older) Flublok IM Intramuscular Jan 14, 2018 Administered Influenza (18 yrs & older) Flublok IM Intramuscular Jan 07, 2019 Administered Influenza (6mo & up) Fluzone IM Intramuscular Jan 10, 2010 Ad ministered Influenza (High Dose 65 & up) IM Intramuscular Jan 28, 2016 A dministered Pneumococcal 0.5mL (Prevnar 13) IM Intramuscular May 06, 2015 Administered Influenza (High Dose 65 & up) IM Intramuscular Feb 04, 2015 A dministered Influenza (High Dose 65 & up) IM Intramuscular Jan 21, 2014 A dministered Zoster 0.65mL (Zostavax) Unknown June 24, 2014 Adminis tered Influenza (6mo & up) Fluzone IM Intramuscular Jan 27, 2013 Ad ministered Influenza (6mo & up) Fluzone IM Intramuscular Jan 10, 2012 Ad ministered Influenza (6mo & up) Fluzone IM Intramuscular Jan 11, 2011 Ad ministered SOCIAL HISTORY Tobacco Use: Social History Observation Description Date Details (start date - stop date) Never Smoker Sex Assigned At : Social History Observation Description Sex Assigned At Unknown Education: Question Answer Notes Level of Education: High School [employer] Audit Question Answer Notes Total Score: 0 Interpretation: Alcohol Education Scientologist: Question Answer Notes Scientologist 23 Jehovah Witness No blood products Sexual Hx: Question Answer Notes Had sex in the last 12 months (vaginal, oral, or anal)? Yes Have you ever had an STD? No with Men only Drug and Alcohol Question Answer Notes Total Score: 0 Interpretation: No problems reported Alcohol Screening: Question Answer Notes Did you have a drink containing alcohol in the past year? Ye s Points 1 Interpretation Negative How many drinks did you have on a typica l day when you were drinking in the past year? 1 or 2 (0 points) How often did you have a drink containing alcohol in t he past year? Monthly or less (1 point) BMI Care Goal Follow-Up Question Answer Notes Above Normal BMI Follow-Up Dietary management educatio n, guidance, and counseling Tobacco Use: Question Answer Notes Are you a: never smoker never smoker REASON FOR REFERRAL No Information VITAL SIGNS Weight 168 lbs Feb, Weight-kg 76.2 kg Feb, Height 64 in Feb, BMI 28.83 kg/m2 Feb, Blood pressure systolic 167 mm Hg Feb, Blood pressure diastolic 75 mm Hg Feb, MEDICATIONS Medication SIG (Take, Route, Frequency, Duration) Notes Start Da te End Date Status Refresh Dry Eye Therapy A ctive Betamethasone Valerate 0.1 % 1 application to ears Ext ernally Once a day as needed for 30 day(s) Oct, Active PreserVision AREDS 2 - 2 cap Orally Daily Active Calcium 600 + D 600-400 MG-UNIT 1 tab(s) Orally twice a day Active Vitamin C 500 MG OTC 1 tablet Orally once a day Active Aspir-81 81 MG OTC 1 tablet Orally Once a day Active Fluticasone Propionate 50 MCG/ACT 1 spray in each nost ril Nasally before bedtime for 30 day(s) Feb, Not-Taking Zocor 40 mg 1 tablet every evening Orally at bedtime for 90 Active PreserVision AREDS - 1 cap Orally bid Not-Taking Multivitamins OTC 1 tablet Orally once a day Active PROCEDURES No Information RESULTS No Results REASON FOR VISIT BREAST EXAM BEFORE MAMMO MEDICAL (GENERAL) HISTORY Type Description Date Medical History hyperlipidemia Medical History Esophageal reflux Medical History benign breast disease Medical History osteopenia--Fosamax d/c 07/01, nl DEXA Medical History basal cell carcinoma, nose Medical History postmenopause Medical History Hindu--no blood products Medical History adenomatous colon polyps 06/06 Medical History macular degeneration 2017 Surgical History cysts on each breasts Surgical History total L hip 08/29 Surgical History colonoscopy--nl 2001, adenomatous polyp 2013, normal 2017 07/25, 05/2013, 11/09 Hospitalization History hip surgery Hospitalization History child x2 Goals Section No Information Health Concerns No Information MEDICAL EQUIPMENT No Information MENTAL STATUS No Information FUNCTIONAL STATUS No Information ASSESSMENTS Encounter Date Diagnosis Assessment Notes Treatment Notes Treatm ent Clinical Notes Feb, Other screening mammogram (ICD-10 - Z12.31) Feb, Other screening breast examination (ICD-10 - Z12 .39) PLAN OF TREATMENT Treatment Notes Test Name Order Date [facility] Vito Screening Bilateral (Ultrasound if Indicated ) (3D Mammo) 2020-03-04 Next Appt Details 2 years Reason:annual and mammo Follow Up:2 yearsannual and mammo Insurance Providers Payer Name Payer Address Payer Phone Insured Name Patient Relati onship to Insured Coverage Start Date Coverage End Date [facility] [email or web address] [address] [address] [facility] [id number] JAROD FAM self
[2020-05-10] MEDS ORDERED: BSS IRR 500ML/OMIDRIA 4ML IRR BAG (OR ONLY) As Ordered ONE (11:16)
[2020-05-10] MEDS ORDERED: ONDANSETRON 4MG/2ML VIAL As Ordered ONE (11:49)
[2020-05-10] MEDS ORDERED: fentaNYL 100 MCG/2 ML INJECTION (J3010) As Ordered ONE ×2 (11:49→12:11)
[2020-05-10] MEDS ORDERED: MIDAZOLAM INJ 2MG/2ML VIAL (J2250 PER 1MG) As Ordered ONE ×2 (11:49→12:11)
[2020-05-10 12:00] VITALS: BP 139/65
--- NOTE | 2020-05-11 09:26 | RO ---
OPERATIVE NOTE DATE OF OPERATION: 05/10/2020 PREOPERATIVE DIAGNOSIS: 1. Visually significant nuclear sclerotic cataract, right eye. POSTOPERATIVE DIAGNOSIS: 1. Visually significant nuclear sclerotic cataract, right eye. PROCEDURE: 1. Cataract extraction with use of phacoemulsification, and placement of intraocular lens, AU00T0, 22.0 D, right eye. SURGEON: Syd Rodriguez DO ANESTHESIA: Local (Omidria with MAC) COMPLICATIONS: None POSTOPERATIVE CONDITION: Stable INDICATIONS FOR SURGERY: 1. Blurred vision affecting patient's activities of daily living. DESCRIPTION OF PROCEDURE: The patient was seen in the preoperative area and properly identified. The correct operative eye was identified and marked. The patient received topical anesthetic, antibiotics, and topical dilating drops. The patient was then transferred to the operating room. The correct side was re-identified and a time-out was performed. The eye was prepped and draped in a sterile fashion. The eyelids were isolated with Tegaderm tape and the lids were held open with an adjustable speculum. A 1.0mm paracentesis incision was made. Omidria was then injected into the anterior chamber. Viscoelastic was then injected into the anterior chamber through the paracentesis. Using a 2.4mm sharp-tipped keratome, the anterior chamber was entered via a temporal clear cornea incision. A continuous curvilinear capsulorrhexis was created with Utrata forceps. Hydrodissection was performed with BSS on a blunt cannula until the nucleus was able to rotate freely. The crystalline lens was phacoemulsified and aspirated. Irrigation/aspiration was used to remove the cortical material Cohesive viscoelastic was placed into the capsular bag to deepen it. The implant was placed into the capsular bag and allowed to unfold. Placement was confirmed by visualizing the anterior capsulorrhexis. Irrigation/aspiration was used to remove the viscoelastic. The clear corneal incision was hydrated with BSS on a blunt cannula. The lens was well positioned. Intracameral antibiotic was injected into the anterior chamber. The incisions were then tested for leaks and found to be negative. The eye was then palpated for appropriate pressure and adjusted accordingly with BSS. The eyelid speculum was then carefully removed. A shield was placed over the eye. The patient tolerated the procedure well and was discharge to the recovery unit in a stable condition.
== END 2020-05-10 12:25 | disposition home or self-care (01) ==
LOC: M SDC 08:57
PROVIDERS: ATTEND Ophthalmology
DX: H25.11 Age-related nuclear cataract, right eye (principal); E78.5 Hyperlipidemia, unspecified; Z79.899 Other long term (current) drug therapy; Z79.82 Long term (current) use of aspirin
CPT/HCPCS: 66984; J1097; J2250; J2405; J3010; V2632

== ENCOUNTER → 2020-10-11 | Outpatient (REF) | payer MEDICARE ==
[~2020-10-11] MED LIST changes: -CEFUROXIME 1MG/0.1ML INTRACAMERAL INJ As Ordered ONE; -DUOVISC (0.50ML VISCOAT/0.55ML PROVISC) OPHTH KIT As Ordered ONE; -OFLOXACIN 0.3 % (OCUFLOX) OPTH SOL 5ML OD ONE; -PHENYLEPHRINE 2.5% OPHTH SOL 2ML OD ONE; -POVIDONE-IODINE 5% OPHTH PREP SOL 30ML As Ordered ONE; -PROPARACAINE 0.5% OPHTH SOL 15ML OD ONE; -TROPICAMIDE 1% OPHTH SOLN 2ML OD ONE
[2020-10-11 13:10] LABS: HEMATOCRIT 40.5 % (36.0-47.0); HEMOGLOBIN 12.8 g/dl (12.0-15.5); MEAN CORPUSCULAR HEMOGLOBIN 29.9 pg (27.0-33.0); MEAN CORPUSCULAR HGB CONC 31.6 g/dl (32.0-36.5); MEAN CORPUSCULAR VOLUME 94.6 fl (80.0-96.0); PLATELET COUNT, AUTOMATED 243 10^3/uL (150-450); RED BLOOD COUNT 4.28 10^6/uL (4.00-5.40); WHITE BLOOD COUNT 7.7 10^3/uL (4.0-10.0)
[2020-10-11 13:19] LABS: AMORPHOUS SEDIMENT SMALL (NEGATIVE); APPEARANCE, URINE HAZY (CLEAR); BACTERIA, URINE AUTO NEGATIVE (NEGATIVE); BILIRUBIN, URINE AUTO NEGATIVE (NEGATIVE); BLOOD, URINE BLOOD NEGATIVE (NEGATIVE); COLOR, URINE YELLOW (YELLOW); GLUCOSE, URINE (UA) AUTO NEGATIVE (NEGATIVE); KETONE, URINE AUTO NEGATIVE (NEGATIVE); LEUKOCYTE ESTERASE, URINE AUTO NEGATIVE (NEGATIVE); MUCUS, URINE SMALL (NEGATIVE); NITRITE, URINE AUTO NEGATIVE (NEGATIVE); PROTEIN, URINE AUTO NEGATIVE (NEGATIVE); RBC, URINE AUTO 1 /HPF (0-3); SPECIFIC GRAVITY URINE AUTO 1.015 (1.002-1.035); SQUAMOUS EPITHELIAL CELL UR AU 0 /HPF (0-6); UROBILINOGEN, URINE AUTO 0.2 mg/dL (0.0-2.0); WBC, URINE AUTO 2 /HPF (0-3)
[2020-10-11 13:57] LABS: ALBUMIN 3.8 GM/DL (3.2-5.2); ALT/SGPT 26 U/L (12-78); BILIRUBIN,TOTAL 0.4 MG/DL (0.2-1.0); BLOOD UREA NITROGEN 15 MG/DL (7-18); CALCIUM LEVEL 9.2 MG/DL (8.8-10.2); CARBON DIOXIDE LEVEL 30 MEQ/L (21-32); CHLORIDE LEVEL 107 MEQ/L (98-107); CHOLESTEROL LEVEL 211 MG/DL (<200); CHOLESTEROL RISK RATIO 4.137 (<5); CREATININE FOR GFR 0.78 MG/DL (0.55-1.30); FREE T4 0.82 NG/DL (0.76-1.46); GLOMERULAR FILTRATION RATE > 60.0 (>39); GLUCOSE, FASTING 85 MG/DL (70-100); HDL CHOLESTEROL 51 MG/DL (>40); LDL CHOLESTEROL 110 MG/DL (<100); NON-HDL-C 160 MG/DL; POTASSIUM SERUM 4.3 MEQ/L (3.5-5.1); SODIUM LEVEL 141 MEQ/L (136-145); TOTAL PROTEIN 7.4 GM/DL (6.4-8.2); TRIGLYCERIDES LEVEL 251 MG/DL (<150)
== END ==
LOC: M SFHCADAM 08:35
PROVIDERS: ATTEND Family Medicine
DX: K21.9 Gastro-esophageal reflux disease without esophagitis (principal); E78.2 Mixed hyperlipidemia; N39.3 Stress incontinence (female) (male)

== ENCOUNTER → 2021-01-17 | Outpatient (CLI) | payer MEDICARE ==
--- NOTE | 2021-01-17 13:00 | DEXAMM ---
INDICATION: SCREENING FOR OSTEOPOROSIS. COMPARISON: 06/26/2014 as well as other prior exams. TECHNIQUE: Bone density was measured using dual-energy x-ray absorptiometry (DEXA). FINDINGS: AP SPINE L1-L4 BMD 1.115 g/cm2 Young Adult T-Score -0.6 Age Matched Z-Score 1.2. RT FEMUR, TOTAL BMD 0.862 g/cm2 Young Adult T-Score -1.2 Age Matched Z-Score 0.8. RT NECK BMD 0.796 g/cm2 Young Adult T-Score -1.7 Age Matched Z-Score 0.4. IMPRESSION: There is normal bone density of the spine. There is low bone density of the right hip. The density of the spine has increased 23.9% since the initial exam on 03/27/2000. The density of the spine increased 4.2% since most recent exam on 06/26/2014. The density of the right hip has increased 13.6% since the initial exam on 03/27/2000. The density of the right hip has decreased 1.6% since the most recent exam on 06/26/2014. FOLLOW-UP: Recommendation for the next bone density exam: 2 years. <Electronically signed by Magan Salguero > 01/17/21 1257
== END ==
LOC: M WHC 09:55
PROVIDERS: ATTEND Family Medicine
DX: M85.851 Other specified disorders of bone density and structure, right thigh (principal); Z13.820 Encounter for screening for osteoporosis

== ENCOUNTER → 2021-04-08 | Outpatient (CLI) | payer MEDICARE | LOC: M WHC 08:46 | PROVIDERS: ATTEND Nurse Practitioner Women's Health | DX: Z12.31 Encounter for screening mammogram for malignant neoplasm of breast (principal) ==

== ENCOUNTER → 2021-07-11 | Outpatient (CLI) | payer MEDICARE ==
[2021-07-11 10:54] LABS: ALBUMIN 3.4 GM/DL (3.2-5.2); ALT/SGPT 22 U/L (12-78); BILIRUBIN,TOTAL 0.4 MG/DL (0.2-1.0); BLOOD UREA NITROGEN 17 MG/DL (7-18); CALCIUM LEVEL 8.5 MG/DL (8.8-10.2); CARBON DIOXIDE LEVEL 32 MEQ/L (21-32); CHLORIDE LEVEL 109 MEQ/L (98-107); CHOLESTEROL LEVEL 160 MG/DL (<200); CREATININE FOR GFR 0.73 MG/DL (0.55-1.30); GLOMERULAR FILTRATION RATE > 60.0 (>39); GLUCOSE, FASTING 77 MG/DL (70-100); HDL CHOLESTEROL 50 MG/DL (>40); LDL CHOLESTEROL 86 MG/DL (<100); NON-HDL-C 110 MG/DL; POTASSIUM SERUM 4.5 MEQ/L (3.5-5.1); SODIUM LEVEL 144 MEQ/L (136-145); TOTAL PROTEIN 6.6 GM/DL (6.4-8.2); TRIGLYCERIDES LEVEL 122 MG/DL (<150)
== END ==
LOC: M WUC 08:33
PROVIDERS: ATTEND Family Medicine
DX: E78.2 Mixed hyperlipidemia (principal)

== ENCOUNTER → 2022-09-07 | Outpatient (REF) | payer MEDICARE ==
[2022-09-08 13:05] LABS: HEMOGLOBIN 12.1 g/dl (12.0-15.5); MEAN CORPUSCULAR HGB CONC 30.3 g/dl (32.0-36.5); PLATELET COUNT, AUTOMATED 254 10^3/uL (150-450); RED BLOOD COUNT 4.04 10^6/uL (4.00-5.40); WHITE BLOOD COUNT 8.8 10^3/uL (4.0-10.0)
[2022-09-08 13:44] LABS: ALKALINE PHOSPHATASE 86 U/L (46-116); ALT/SGPT 15 U/L (7.0-40); AST/SGOT < 8 U/L (<34); BILIRUBIN,TOTAL 0.6 MG/DL (0.3-1.2); BLOOD UREA NITROGEN 13 MG/DL (9-23); CARBON DIOXIDE LEVEL 28 MMOL/L (20-31); CHLORIDE LEVEL 104 MMOL/L (98-107); CHOLESTEROL LEVEL 192 MG/DL (<200); CHOLESTEROL RISK RATIO 3.34 (<5); FREE T4 0.99 NG/DL (0.89-1.76); GLOMERULAR FILTRATION RATE > 60.0 (>32); GLUCOSE, FASTING 76 MG/DL (74-106); HDL CHOLESTEROL 57.4 MG/DL (>40); LDL CHOLESTEROL 95.4 MG/DL (<100); NON-HDL-C 134.6 MG/DL; POTASSIUM SERUM 4.4 MMOL/L (3.5-5.1); SODIUM LEVEL 140 MMOL/L (136-145); THYROID STIMULATING HORMONE 1.573 uIU/ML (0.55-4.78); TOTAL PROTEIN 7.1 G/DL (5.7-8.2); TRIGLYCERIDES LEVEL 196 MG/DL (<150); VITAMIN B12 LEVEL 223 PG/ML (211-911)
[2022-09-08 13:46] LABS: FOLATE 21.08 NG/ML (>5.4)
== END ==
LOC: M SFHCADAM 14:14
PROVIDERS: ATTEND Family Medicine
DX: K21.9 Gastro-esophageal reflux disease without esophagitis (principal); R41.3 Other amnesia; E78.2 Mixed hyperlipidemia

== ENCOUNTER → 2022-09-14 | Outpatient (CLI) | payer MEDICARE | LOC: M WUC 08:23 | PROVIDERS: ATTEND Family Medicine | DX: E53.8 Deficiency of other specified B group vitamins (principal) ==

== ENCOUNTER → 2022-11-09 | Outpatient (CLI) | payer MEDICARE | LOC: M WHC 10:14 | PROVIDERS: ATTEND Nurse Practitioner Family | DX: Z12.31 Encounter for screening mammogram for malignant neoplasm of breast (principal) ==

== ENCOUNTER → 2023-09-06 | Outpatient (REF) | payer MEDICARE ==
[2023-09-06 14:42] LABS: HEMATOCRIT 36.8 % (36.0-47.0); HEMOGLOBIN 11.9 g/dl (12.0-15.5); MEAN CORPUSCULAR HEMOGLOBIN 30.5 pg (27.0-33.0); MEAN CORPUSCULAR HGB CONC 32.3 g/dl (32.0-36.5); MEAN CORPUSCULAR VOLUME 94.4 fl (80.0-96.0); PLATELET COUNT, AUTOMATED 237 10^3/uL (150-450); WHITE BLOOD COUNT 8.2 10^3/uL (4.0-10.0)
[2023-09-06 14:56] LABS: HEMOGLOBIN A1c 5.2 % (4.0-6.0)
[2023-09-06 15:09] LABS: FREE T4 1.01 NG/DL (0.89-1.76); THYROID STIMULATING HORMONE 2.154 uIU/ML (0.55-4.78)
[2023-09-06 15:12] LABS: ALBUMIN 3.6 G/DL (3.2-5.2); ALKALINE PHOSPHATASE 81 U/L (46-116); ALT/SGPT 18 U/L (7.0-40); AST/SGOT < 8 U/L (<34); BILIRUBIN,TOTAL 0.5 MG/DL (0.3-1.2); BLOOD UREA NITROGEN 19 MG/DL (9-23); CALCIUM LEVEL 9.6 MG/DL (8.3-10.6); CARBON DIOXIDE LEVEL 29 MMOL/L (20-31); CHLORIDE LEVEL 106 MMOL/L (98-107); CHOLESTEROL LEVEL 159 MG/DL (<200); CHOLESTEROL RISK RATIO 3.35 (<5); CREATININE FOR GFR 0.67 MG/DL (0.55-1.30); GLOMERULAR FILTRATION RATE > 60.0 (>32); GLUCOSE, FASTING 67 MG/DL (74-106); HDL CHOLESTEROL 47.4 MG/DL (>40); LDL CHOLESTEROL 68.4 MG/DL (<100); NON-HDL-C 111.6 MG/DL; POTASSIUM SERUM 4.5 MMOL/L (3.5-5.1); SODIUM LEVEL 141 MMOL/L (136-145); TOTAL PROTEIN 6.7 G/DL (5.7-8.2); TRIGLYCERIDES LEVEL 216 MG/DL (<150)
[2023-09-06 15:13] LABS: VITAMIN B12 LEVEL 1624 PG/ML (211-911)
== END ==
LOC: M SFHCADAM 09:59
PROVIDERS: ATTEND Family Medicine
DX: R03.0 Elevated blood-pressure reading, without diagnosis of hypertension (principal); E78.2 Mixed hyperlipidemia; E53.8 Deficiency of other specified B group vitamins; Z13.1 Encounter for screening for diabetes mellitus

== ENCOUNTER → 2023-11-05 | Outpatient (CLI) | payer MEDICARE ==
[2023-11-05 14:43] LABS: BASO # 0.1 10^3/uL (0.0-0.2); BASO % 0.7 % (0.0-1.0); EOS # 0.2 10^3/uL (0.0-0.5); EOS % 2.2 % (0.0-3.0); HEMATOCRIT 36.3 % (36.0-47.0); HEMOGLOBIN 11.9 g/dl (12.0-15.5); LYMPH # 1.4 10^3/uL (1.5-5.0); LYMPH % 20.7 % (24.0-44.0); MEAN CORPUSCULAR HEMOGLOBIN 30.8 pg (27.0-33.0); MEAN CORPUSCULAR HGB CONC 32.8 g/dl (32.0-36.5); MONO # 0.5 10^3/uL (0.0-0.8); NEUTROPHILS # 4.7 10^3/uL (1.5-8.5); NEUTROPHILS % 69.3 % (36.0-66.0); PLATELET COUNT, AUTOMATED 230 10^3/uL (150-450); RED BLOOD COUNT 3.86 10^6/uL (4.00-5.40); WHITE BLOOD COUNT 6.8 10^3/uL (4.0-10.0)
[2023-11-05 14:48] LABS: ERYTHROCYTE SEDIMENTATION RATE 22 mm/hr (0-30)
[2023-11-05 15:18] LABS: ALBUMIN 3.6 G/DL (3.2-5.2); ALKALINE PHOSPHATASE 83 U/L (46-116); ALT/SGPT 14 U/L (7.0-40); AST/SGOT < 8 U/L (<34); BILIRUBIN,TOTAL 0.5 MG/DL (0.3-1.2); BLOOD UREA NITROGEN 14 MG/DL (9-23); CALCIUM LEVEL 9.2 MG/DL (8.3-10.6); CARBON DIOXIDE LEVEL 29 MMOL/L (20-31); CHLORIDE LEVEL 108 MMOL/L (98-107); CREATININE FOR GFR 0.71 MG/DL (0.55-1.30); GLOMERULAR FILTRATION RATE > 60.0 (>32); GLUCOSE, FASTING 129 MG/DL (74-106); POTASSIUM SERUM 3.8 MMOL/L (3.5-5.1); SODIUM LEVEL 139 MMOL/L (136-145); TOTAL PROTEIN 6.9 G/DL (5.7-8.2)
[2023-11-05 15:19] LABS: FREE T4 1.12 NG/DL (0.89-1.76); THYROXINE (T4) 8.1 UG/DL (4.5-10.9)
[2023-11-05 15:20] LABS: FOLATE > 24.00 NG/ML (>5.4); THYROID STIMULATING HORMONE 2.563 uIU/ML (0.55-4.78); VITAMIN B12 LEVEL 1849 PG/ML (211-911)
[2023-11-05 15:22] LABS: FREE THYROXINE INDEX 2.3 % (1.3-4.8); T UPTAKE 28.2 % (22.5-37.0)
[2023-11-07 09:18] LABS: ANA SCREEN, IFA POSITIVE (NEGATIVE)
[2023-11-07 09:27] LABS: ANA PATTERN Cytoplasmic (NEGATIVE)
[2023-11-08 20:38] LABS: VITAMIN E(ALPHA TOCOPHEROL) 33.6 mg/L (5.7-19.9); VITAMIN E(GAMMA TOCOPHEROL) < 1.0 mg/L (<=4.3)
== END ==
LOC: M WUC 10:45
PROVIDERS: ATTEND Psychiatry & Neurology Neurology
DX: E07.9 Disorder of thyroid, unspecified (principal); E53.8 Deficiency of other specified B group vitamins; R41.3 Other amnesia

== ENCOUNTER → 2024-01-10 | Outpatient (CLI) | payer MEDICARE | LOC: M WHC 09:06 | PROVIDERS: ATTEND Nurse Practitioner Family | DX: Z12.31 Encounter for screening mammogram for malignant neoplasm of breast (principal); R92.313 Mammographic fatty tissue density, bilateral breasts ==

== ENCOUNTER → 2024-10-28 | Outpatient (CLI) | payer MEDICARE ==
[2024-10-28 12:39] LABS: PLATELET COUNT, AUTOMATED 240 10^3/uL (150-450)
[2024-10-28 12:51] LABS: ESTIMATED AVERAGE GLUCOSE 108.0 MG/DL (60-110)
[2024-10-28 13:16] LABS: FREE T4 1.11 NG/DL (0.89-1.76)
[2024-10-28 13:18] LABS: VITAMIN B12 LEVEL 1678 PG/ML (211-911)
[2024-10-28 13:19] LABS: CHOLESTEROL LEVEL 157 MG/DL (<200); CHOLESTEROL RISK RATIO 2.66 (<5); LDL CHOLESTEROL 75.4 MG/DL (<100); NON-HDL-C 98.0 MG/DL; TRIGLYCERIDES LEVEL 113 MG/DL (<150)
== END ==
LOC: M WUC 08:53
PROVIDERS: ATTEND Family Medicine
DX: E53.8 Deficiency of other specified B group vitamins (principal); Z13.1 Encounter for screening for diabetes mellitus; E78.2 Mixed hyperlipidemia; F03.90 Unspecified dementia, unspecified severity, without behavioral disturbance, psychotic disturbance, mood disturbance, and anxiety

== ENCOUNTER → 2025-01-19 | Outpatient (CLI) | payer MEDICARE | LOC: M WHC 09:17 | PROVIDERS: ATTEND Nurse Practitioner Family | DX: Z12.31 Encounter for screening mammogram for malignant neoplasm of breast (principal); Z13.820 Encounter for screening for osteoporosis; R92.313 Mammographic fatty tissue density, bilateral breasts; M85.80 Other specified disorders of bone density and structure, unspecified site ==